=== PATIENT | female | born 1975 | race Caucasian/White ===

== ENCOUNTER 2019-05-18 12:43 | Emergency (ER) | payer OTHER, SELFPAY ==
--- NOTE | ~2019-05-18 | XR_ITS ---
EXAMINATION: XR chest 2V DATE: 05/18/2019 13:52 INDICATION: Left-sided chest pain TECHNIQUE: Frontal and lateral views of the chest are obtained COMPARISON: None available FINDINGS: There is minimal airspace opacity of the right middle lobe. There is no pleural effusion or pneumothorax. The cardiomediastinal silhouette is normal. There is mild thoracic spondylosis. IMPRESSION: 1. Minimal airspace opacity of the right middle lobe, consistent with atelectasis versus pneumonia. Reviewed, dictated and finalized at location B. IMPRESSION: 1. Minimal airspace opacity of the right middle lobe, consistent with atelectas is versus pneumonia.
[2019-05-18 12:47] VITALS: BP 170/107; PULSE 111; RESP 10; TEMP 36.8; O2SAT 100
--- NOTE | 2019-05-18 12:56 | PC.NURSE ---
ERP CORNEL AT BEDSIDE.
--- NOTE | 2019-05-18 12:56 | ED.GENADULT ---
HPI - General Adult General Chief complaint: Extremity Injury, Upper Stated complaint: left shoulder pain/ back Time Seen by Provider: 05/18/19 12:50 Source: patient Mode of arrival: ambulatory Limitations: no limitations History of Present Illness HPI narrative: Pt is a 44 y/o female who presents to the ED with c/o lt shoulder pain, lt collarbone pain, and lt arm weakness. Pt states that her Sx started this morning at 3AM. She notes that she has been anxious and reports nausea, posterior DUGGAN, posterior neck pain, and warmth to her chest, ears, and face. Pt denies any injury or trauma to her arm. She states that she took Ibuprofen at 3AM and 7AM with no relief. Pt has a H/o HTN and HLD, but she denies a H/O DM. MD complaint: Lt sided pain and weakness Onset (ago): hour(s) (10) Location: chest (collarbone), back (shoulder blade), left and upper extremity Pain Consistency: constant Relieving factors: none Associated symptoms: headaches (posterior) and other (anxious, nausea, posterior neck pain, and warmth to her chest, ears, and face) Treatments prior to arrival: other (Ibuprofen) Related Data Allergies Allergy/AdvReac Type Severity Reaction Status Date / Time amlodipine Allergy Unknown Swelling Verified 05/18/19 12:53 Penicillins Allergy Unknown Unknown Verified 05/18/19 12:53 Sulfa (Sulfonamide Allergy Unknown Unknown Verified 05/18/19 12:53 Antibiotics) tetracycline Allergy Unknown Unknown Verified 05/18/19 12:53 Review of Systems Review of Systems: All systems reviewed & are unremarkable except as noted in HPI and below Gastrointestinal: Gastrointestinal: Reports nausea Musculoskeletal: Musculoskeletal: Reports neck pain (posterior) and Reports other (lt collarbone pain, lt shoulder blade pain, lt arm muscle fatigue) Integumentary/Breasts: Skin/Breast: Reports other (warmth to ears, face, and chest) Neurologic: Reports headache(s) (posterior) Psychiatric: Psychiatric: Reports anxiety PMFSH Past Medical History Medical History (Updated 05/18/19 @ 14:53 by Henri Lantigua MD) HLD (hyperlipidemia) HTN (hypertension) Rheumatoid arthritis Surgical History Surgical History (Updated 05/18/19 @ 13:18 by Buddy Maldonado) H/O hand surgery rt H/O left knee surgery H/O right knee surgery Family History Family History (Updated 10/22/13 @ 07:13 by DOCTOR UNKNOWN) Mother Family history of osteoarthritis Other Family history of arthritis Social History Social History Smoking status: Never smoker Smoking end date: 02/26/08 Alcohol intake: current Gender identity (if verbalized by the patient): Female Exam Const: General: healthy appearing, no acute distress and well developed Nutritional Appearance: well nourished Orientation/consciousness: patient oriented x3 (alert) and Other orientation findings (Alert) Limitations: no limitations HENMT: Head: normocephalic and atraumatic Ears: external ears normal General nose exam: No nasal discharge present and no epistaxis Face and sinus: face symmetric Mouth: Yes lip normal, Yes tongue normal and Yes moist mucous membranes Throat: other (No exudate, no erythema) Eyes: Conjunctivae: conjunctivae normal Sclera: sclerae normal EOM: EOMs intact bilaterally Neck: Neck: full ROM, no lymphadenopathy and supple Thyroid: thyroid normal Chest: Chest palpation & inspection: no tenderness Resp: Effort & Inspection: normal respiratory effort Auscultation: clear to auscultation bilaterally, no rales, no rhonchi, no wheezes and other (breath sounds equal) Cardio: Rate: regular rate Rhythm: regular rhythm Heart sounds: no gallops and no murmurs GI: Inspection: non-distended GI Palp: No abdominal tenderness and Yes Soft to palpation Auscultation: other (bowel sounds present) : General: Yes no CVA tenderness Back/Spine/Pelvis: Back: no CVA tenderness Thoracic/Lumbar Spine: thoracic and lumbar spine no
--- NOTE | 2019-05-18 13:01 | ECG_ITS ---
Measurements Intervals [place] Rate: 85 P: 41 SC: 144 QRS: 24 QRSD: 90 T: 18 QT: 367 QTc: 437 Interpretive Statements SINUS RHYTHM POSSIBLE LEFT ATRIAL ENLARGEMENT INCOMPLETE RIGHT BUNDLE BRANCH BLOCK BORDERLINE ST-T WAVE ABNORMALITY- INF/LAT LEADS BORDERLINE ECG Electronically Signed On 05-18-2019 13:26:25 CDT by Barney Lr D.O.
[2019-05-18] MEDS: ASPIRIN 81 MG CHEWABLE TABLET 324 MG PO (13:21)
[2019-05-18 13:28] LABS: Basophils Percent Auto 0.2 % (0.2-1.2); Eosinophils Absolute Auto 0.2 K/mm3 (0-0.3); Eosinophils Percent Auto 2.5 % (0-4.4); Hematocrit 40.2 % (37.0-47.0); Immature Granulocyte Absolute 0.02 K/mm3 (0.00-0.031); Immature Granulocyte Percent A 0.2 % (0-0.5); Lymphocytes Absolute Auto 3.02 K/mm3 (0.9-3.2); Lymphocytes Percent Auto 37.5 % (18.3-44.2); Mean Corpuscular HGB Conc 34.8 g/dl (32-36); Mean Corpuscular Hemoglobin 31.2 pg (26-34); Mean Corpuscular Volume 89.5 fl (80-100); Monocytes Absolute Auto 0.7 K/mm3 (0.1-0.6); Monocytes Percent Auto 8.6 % (2.6-8.5); Neutrophils Absolute Auto 4.1 K/mm3 (1.3-6.7); Platelet Count Result 316 k/mm3 (150-375); Red Blood Count 4.49 M/mm3 (4.2-5.4); Red Cell Distribution Width 11.9 % (11.5-14.5); White Blood Count 8.1 K/mm3 (4.5-10.0)
[2019-05-18] MEDS: NITROGLYCERIN SL 0.4 MG TABLET SUBLINGUAL (13:28)
[2019-05-18 13:29] VITALS: BP 151/93; PULSE 105; RESP 16; O2SAT 98
[2019-05-18 13:33] VITALS: BP 153/100; PULSE 102; RESP 18; O2SAT 100
[2019-05-18 13:40] LABS: Alanine Aminotransferase 28 U/L (4-35); Albumin Level 4.8 g/dL (3.5-5.1); Alkaline Phosphatase 72 U/L (38-126); Aspartate Amino Transferase 28 U/L (14-36); Bilirubin,Total 0.6 mg/dL (0.2-1.3); Blood Urea Nitrogen 12 mg/dL (7-17); Calcium 9.2 mg/dL (8.4-10.2); Carbon Dioxide 27 mmol/L (22-30); Chloride 102 mmol/L (98-107); Estimated CRCL calculation 115 ml/min; Estimated Glomerular Filt Rate > 60; Glucose 113 mg/dL (65-105); Potassium 3.2 mmol/L (3.4-5.0); Sodium 139 mmol/L (137-145)
[2019-05-18 13:51] LABS: Troponin I < 0.012 ng/mL (0.000-0.034)
[2019-05-18 14:01] VITALS: PULSE 89; RESP 18; O2SAT 98
[2019-05-18 14:24] VITALS: BP 132/93; PULSE 86; RESP 16; O2SAT 100
[2019-05-18 14:55] VITALS: BP 129/92; PULSE 81; RESP 16; O2SAT 98
== END 2019-05-18 15:04 | disposition home or self-care (01) ==
PROVIDERS: Emergency Provider Emergency Medicine; PCP Family Medicine
DX: M54.2 Cervicalgia (principal); I10 Essential (primary) hypertension; E78.5 Hyperlipidemia, unspecified; M06.9 Rheumatoid arthritis, unspecified; R91.8 Other nonspecific abnormal finding of lung field; I45.10 Unspecified right bundle-branch block; R94.31 Abnormal electrocardiogram [ECG] [EKG]
CPT/HCPCS: 36415; 71046; 80053; 84484; 85025; 93005; 99284; A9270

== ENCOUNTER 2019-08-06 06:38 | Outpatient (CLI) | payer OTHER, SELFPAY ==
--- NOTE | ~2019-08-06 | XR_ITS ---
XR_CERV2-3V_CR 08/06/2019 08:08 Indication: Rheumatoid arthritis. Procedure: 3 views of the cervical spine Comparison: No prior studies for comparison. Findings: Straightening of cervical lordosis. There is disc narrowing and endplate hypertrophy at C5- 6 and C6-7. No prevertebral soft tissue abnormality. There is multilevel uncinate hypertrophy. Lung a pices are normal. No erosive changes. Odontoid process within normal limits. Impression: 1: Moderate cervical spondylosis, most advanced at C5-6 and C6-7. Reviewed, dictated and finalized at location A. Impression: 1: Moderate cervical spondylosis, most advanced at C5-6 and C6-7.
--- NOTE | ~2019-08-06 | XR_ITS ---
EXAMINATION: XR ankle LT 2V, XR foot LT min 3V, XR foot RT min 3V, XR ankle RT 2V DATE: 08/06/2019 08:08 INDICATION: Rheumatoid arthritis presenting with generalized arthralgia and articular hypermobility. TECHNIQUE: 1. Anteroposterior and lateral view of the left ankle were obtained. 2. Dorsoplantar, two oblique and lateral views of the left foot were obtained. 3. Anteroposterior and lateral view of the right ankle were obtained. 4. Dorsoplantar, two oblique and lateral views of the right foot were obtained. COMPARISON: None. FINDINGS: Alignment of the bilateral feet and ankles is normal. No fracture or osteochondral lesion. Minimal to mild polyarticular osteoarthritis characterized by slight nonuniform joint space narrowing and/or ti ny marginal osteophytes at the bilateral tibiotalar, first metatarsophalangeal and a few interphalang eal joints. No erosions to suggest an inflammatory arthritis. No ankle joint effusion. The soft tissu es are unremarkable. IMPRESSION: 1. Typical distribution of relatively symmetric minimal to mild polyarticular osteoarthritis at the a nkles and forefeet. No erosions to suggest an inflammatory arthritis. Reviewed, dictated and finalized at location A. IMPRESSION: 1. Typical distribution of relatively symmetric minimal to mild polyarticular o steoarthritis at the ankles and forefeet. No erosions to suggest an inflammator y arthritis. IMPRESSION: 1. Typical distribution of relatively symmetric minimal to mild polyarticular o steoarthritis at the ankles and forefeet. No erosions to suggest an inflammator y arthritis. IMPRESSION: 1. Typical distribution of relatively symmetric minimal to mild polyarticular o steoarthritis at the ankles and forefeet. No erosions to suggest an inflammator y arthritis.
--- NOTE | ~2019-08-06 | XR_ITS ---
XR hip RT min 2V, XR hip LT min 2V 08/06/2019 08:08 Indication: Rheumatoid arthritis. Hip pain. Procedure: 2 views of each hip Comparison: No prior studies for comparison. Findings: Normal anatomic alignment. No significant joint space narrowing. No erosive changes. No fra cture or traumatic malalignment. There is an IUD in the pelvis. Impression: 1: No significant bone or joint abnormality. Reviewed, dictated and finalized at location A. Impression: 1: No significant bone or joint abnormality. Impression: 1: No significant bone or joint abnormality.
--- NOTE | ~2019-08-06 | XR_ITS ---
XR hand BI arthritis min 3V 08/06/2019 08:08 Indication: Bilateral hand pain Procedure: 4 views of each hand Comparison: No prior studies for comparison. Findings: There is a side plate and screws transfixing the base of the right fifth metacarpal. There are arm degenerative changes at the first CMC joint bilaterally. No acute fracture or traumatic malal ignment. No erosive changes. There is mild osteoarthritis of the left third knee IP joint. There is o steoarthritis of the right third DIP joint. No significant soft tissue abnormality. Impression: 1: Mild-moderate polyarticular osteoarthritis. Reviewed, dictated and finalized at location A. Impression: 1: Mild-moderate polyarticular osteoarthritis.
--- NOTE | ~2019-08-06 | XR_ITS ---
EXAMINATION: XR chest 2V 08/06/2019 08:08 INDICATION: Lung term drug use for rheumatoid arthritis. Generalized articular hypermobility. PROCEDURE: 2 view chest COMPARISON: 05/18/2019 FINDINGS: The lungs are clear. The cardiomediastinal silhouette is within normal limits. There are no pleural effusions. There is no pneumothorax suspected. IMPRESSION: 1: NO ACUTE CARDIOPULMONARY DISEASE. Reviewed, dictated and finalized at location A.
--- NOTE | ~2019-08-06 | MR_ITS ---
EXAMINATION: MR brain/brain stem wo con DATE: 08/06/2019 08:26 CDT INDICATION: Dizziness. Headache. Pupil irregularity. TECHNIQUE: Magnetic resonance imaging (MRI) of the brain and brainstem was performed without intraven ous contrast. Sequences included sagittal and axial T1-weighted SE, axial diffusion-weighted FS SE, a xial T2*-weighted GRE, axial T2-weighted FLAIR Propeller, and axial T2-weighted Propeller. Apparent d iffusion coefficient (ADC) maps were created. COMPARISON: MRI dated 07/31/2011 FINDINGS: The brain volume and ventricular system are within normal limits. The brain parenchymal si gnal intensity pattern and gentile/white matter is normal and there is no evidence of hemorrhage, space occupying masses or infarctions. The flow signal voids of the major arterial structures about the [place] and within the eulalio r dural venous sinuses appear grossly unremarkable and patent. The seventh and eighth cranial nerve complexes are normal. The mid sagittal image demonstrates a normal craniovertebral junction and laisha us callosum. The paranasal sinuses are grossly unremarkable. IMPRESSION: 1: Unremarkable MRI of the brain. Reviewed, dictated and finalized at location A.
== END 2019-08-06 06:39 | disposition home or self-care (01) ==
PROVIDERS: PCP Family Medicine
DX: G44.59 Other complicated headache syndrome (principal); R42 Dizziness and giddiness; H21.562 Pupillary abnormality, left eye; M19.041 Primary osteoarthritis, right hand; M19.042 Primary osteoarthritis, left hand; M47.892 Other spondylosis, cervical region
CPT/HCPCS: 70551; 71046; 72040; 73130; 73502; 73600; 73630

== ENCOUNTER 2020-02-11 09:34 | Emergency (ER) | payer OTHER, SELFPAY ==
--- NOTE | ~2020-02-11 | CT_ITS ---
EXAMINATION: CTA brain carotid DATE: 02/11/2020 11:16 INDICATION: Headache. Anisocoria. TECHNIQUE: Computed tomographic angiography (CTA) of the head was performed without and with 100 mL O mnipaque-350 intravenous contrast. CTA of the neck was performed with intravenous contrast. Automated exposure control and iterative reconstruction technique were employed. The dose-length product was 1 703.44 mGy-cm. Maximum intensity projection and volume rendered 3D-reconstructions were created by santo abraham technologist on a separate workstation. COMPARISON: None. FINDINGS: HEAD CTA: There is no intracranial hemorrhage, acute infarction, or abnormal intracranial mass lesion . The ventricles are normal in size. The paranasal sinuses are clear. The mastoid air cells are susy l. The orbits are normal. The vertebral arteries are codominant. There is no significant stenosis of basilar artery or the posterior cerebral arteries. The posterior communicating arteries are normal. T here is no significant stenosis of the intracranial internal carotid arteries or anterior or middle c erebral arteries. Anterior communicating artery is normal. There is no aneurysm. NECK CTA: There are no pathologically enlarged lymph nodes. There is no significant stenosis of the v ertebral arteries. There is no visible plaque in the proximal internal carotid arteries. There is 0% stenosis of the proximal right internal carotid artery relative to normal distal artery lumen diamete r (NASCET criteria). There is 0% stenosis of the proximal left internal carotid artery relative to no rmal distal artery lumen diameter. There is severe cervical spondylosis. IMPRESSION: 1. Normal brain. No aneurysm or significant intracranial arterial stenosis. 2. 0% stenosis of the proximal internal carotid arteries relative to normal distal artery lumen diame ters (NASCET criteria). Reviewed, dictated and finalized at location A. DENT BUYER IMPRESSION: 1. Normal brain. No aneurysm or significant intracranial arterial stenosis. 2. 0% stenosis of the proximal internal carotid arteries relative to normal dis anjana artery lumen diameters (NASCET criteria).
[2020-02-11 09:38] VITALS: BP 203/107; PULSE 86; RESP 9; TEMP 36.6; O2SAT 99
--- NOTE | 2020-02-11 10:02 | ED.NEUROSD ---
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 She awoke from sleep this morning with a dilated left pupil. She was not concerned initially because she had this a few months ago and was diagnosed with adie's disease. At that time she was told that the symptoms may return. While at her OBGYNs office this morning she also developed a headache and her blood pressure was elevated, so she was sent here for further evaluation. Related Data Home Medications Medication Instructions Recorded Confirmed adalimumab [Humira(CF) Pen] mg SUBCUT 02/11/20 leflunomide mg 02/11/20 Allergies Allergy/AdvReac Type Severity Reaction Status Date / Time amlodipine Allergy Unknown Swelling Verified 02/11/20 09:43 Penicillins Allergy Unknown Unknown Verified 02/11/20 09:43 Sulfa (Sulfonamide Allergy Unknown Unknown Verified 02/11/20 09:43 Antibiotics) tetracycline Allergy Unknown Unknown Verified 02/11/20 09:43 Review of Systems Review of Systems: All systems reviewed & are unremarkable except as noted in HPI and below Constitutional: Constitutional: Denies chills and Denies fever(s) Eyes: Comments: Blurry vision ENT: Denies sore throat Cardiovascular: Cardiovascular: Denies chest pain Respiratory: Respiratory: Denies dyspnea Gastrointestinal: Gastrointestinal: Denies abdominal pain, Denies nausea and Denies vomiting Genitourinary: Genitourinary: Denies dysuria Musculoskeletal: Musculoskeletal: Denies back pain Neurologic: Denies confusion, Denies dizziness, Reports headache(s), Denies numbness and Denies weakness [facility] Past Medical History Medical History HLD (hyperlipidemia) HTN (hypertension) Rheumatoid arthritis Surgical History Surgical History H/O hand surgery rt H/O left knee surgery H/O right knee surgery Family History Family History Mother Family history of osteoarthritis Other Family history of arthritis Social History Social History Smoking status: Never smoker Smoking end date: 02/26/08 Alcohol intake: current Gender identity (if verbalized by the patient): Female Exam Const: General: healthy appearing, no acute distress and alert Nutritional Appearance: well nourished Orientation/consciousness: patient oriented x3 HENMT: Head: normal to inspection Ears: TM's normal bilaterally and EAC's normal Face and sinus: normal facial exam Eyes: Conjunctivae: conjunctivae normal EOM: EOMs intact bilaterally Direct Ophthalmoscopy: no papilledema, fundi normal bilaterally and anterior chamber normal Other: dilated and minimally responsive left pupil Neck: Neck: normal visual inspection and no lymphadenopathy Chest: Chest palpation & inspection: no tenderness Resp: Effort & Inspection: normal respiratory effort Auscultation: clear to auscultation bilaterally, no rales, no rhonchi and no wheezes Cardio: Jugular venous distension: no JVD Rate: regular rate Rhythm: regular rhythm Heart sounds: no murmurs Skin: General skin exam: normal color Neuro: General: patient oriented x3, moves all extremities, no focal motor deficits and CN's II-XI intact bilaterally Speech: normal speech Extrem: General: no edema Psych: Appearance: well kempt Affect: normal affect Course Vital Signs Vital signs: Vital Signs Temperature 36.6 C 02/11/20 09:38 Pulse Rate 86 02/11/20 09:38 Respiratory Rate 9 L 02/11/20 09:38 Blood Pressure 203/107 H 02/11/20 09:38 Pulse Oximetry 99 02/11/20 09:38 Temper
[2020-02-11 10:43] LABS: Basophils Percent Auto 0.7 % (0.2-1.2); Eosinophils Absolute Auto 0.2 K/mm3 (0-0.3); Eosinophils Percent Auto 2.5 % (0-4.4); Hematocrit 44.2 % (37.0-47.0); Hemoglobin 15.6 g/dL (12.0-15.0); Immature Granulocyte Absolute 0.01 K/mm3 (0.00-0.031); Immature Granulocyte Percent A 0.2 % (0-0.5); Lymphocytes Percent Auto 48.7 % (18.3-44.2); Mean Corpuscular HGB Conc 35.3 g/dl (32-36); Mean Corpuscular Hemoglobin 32.4 pg (26-34); Mean Corpuscular Volume 91.7 fl (80-100); Mean Platelet Volume 10.7 fl (7.4-10.4); Monocytes Absolute Auto 0.5 K/mm3 (0.1-0.6); Monocytes Percent Auto 8.4 % (2.6-8.5); Neutrophils Absolute Auto 2.4 K/mm3 (1.3-6.7); Neutrophils Percent Auto 39.5 % (45.5-73.1); Platelet Count Result 269 k/mm3 (150-375); Red Blood Count 4.82 M/mm3 (4.2-5.4); Red Cell Distribution Width 11.9 % (11.5-14.5)
[2020-02-11] MEDS: METOCLOPRAMIDE HCL INJ 10 MG/2 ML VIAL IV PUSH (10:51)
[2020-02-11 10:52] LABS: INR 0.9; Prothrombin Time 12.6 Seconds (11.1-14.7)
[2020-02-11 10:53] LABS: Partial Thromboplastin Time 28.5 SECONDS (22.3-36.8)
[2020-02-11 11:13] LABS: Anion Gap 7 mmol/L (8-16); Blood Urea Nitrogen 12 mg/dL (7-17); Calcium 9.4 mg/dL (8.4-10.2); Carbon Dioxide 30 mmol/L (22-30); Chloride 104 mmol/L (98-107); Estimated CRCL calculation 99 ml/min; Estimated Glomerular Filt Rate > 60; Glucose 99 mg/dL (65-105); Potassium 3.7 mmol/L (3.4-5.0); Sodium 141 mmol/L (137-145)
[2020-02-11 11:31] LABS: Estimated CRCL calculation 99 ml/min; Estimated Glomerular Filt Rate > 60
[2020-02-11 12:01] VITALS: BP 165/106; PULSE 86; RESP 14; O2SAT 98
[2020-02-11] MEDS: KETOROLAC 30 MG/ML VIAL (*BKC) IV PUSH (13:01)
[2020-02-11] MEDS: LABETALOL HCL INJ 100 MG/20 ML VIAL 10 MG IV PUSH (13:02)
[2020-02-11 13:03] VITALS: BP 154/103; PULSE 79; RESP 15; O2SAT 97
[2020-02-11 13:20] VITALS: BP 148/93; PULSE 87; RESP 16; O2SAT 98
== END 2020-02-11 14:03 | disposition home or self-care (01) ==
PROVIDERS: Emergency Provider Emergency Medicine; PCP Family Medicine
DX: H57.052 Tonic pupil, left eye (principal); I10 Essential (primary) hypertension; M06.9 Rheumatoid arthritis, unspecified; E78.5 Hyperlipidemia, unspecified
CPT/HCPCS: 36415; 70496; 70498; 80048; 85025; 85610; 85730; 96374; 96375; 99284; J1100; J1885; J2765; Q9967

== ENCOUNTER 2020-02-14 19:50 | Emergency (ER) | payer OTHER, SELFPAY ==
[2020-02-14] VITALS (22 sets, daily range): BP systolic 143–199; BP diastolic 102–124; PULSE 77–91; RESP 12–22; TEMP 36.8; O2SAT 93–99
--- NOTE | ~2020-02-14 | XR_ITS ---
EXAMINATION: XR chest 1V portable EXAM DATE: 02/14/2020 20:16 INDICATION: shortness of breath, HBP, dizziness. TECHNIQUE: Portable AP frontal chest x-ray was obtained. Comparison is made to prior examination from 08/06/2019. FINDINGS: The lungs are clear. There are no pleural effusions. The cardiomediastinal silhouette is within normal limits. There is no pneumothorax suspected. The bones and soft tissues are unremarkab le. IMPRESSION: No acute cardiopulmonary findings. Reviewed, dictated and finalized at location A. ON BREAKER OPERATOR
--- NOTE | 2020-02-14 19:58 | ECG_ITS ---
Measurements Intervals [place] Rate: 76 P: 40 SC: 152 QRS: 35 QRSD: 88 T: 37 QT: 397 QTc: 447 Interpretive Statements SINUS RHYTHM BORDERLINE ST ABNORMALITY- INF/HIGH LAT LEADS BORDERLINE ECG Electronically Signed On 02-15-2020 8:03:41 MENAGERIE CARETAKER by Barney Lr D.O.
--- NOTE | 2020-02-14 20:03 | ED.GENADULT ---
HPI - General Adult General Chief complaint: Recheck/Abnormal Lab/Rx Stated complaint: high BP Time Seen by Provider: 02/14/20 19:52 History of Present Illness HPI narrative: Patient is a 45-year-old female who presents emerged part with chief complaint of hypertension. The patient reports that she has recently been diagnosed with high blood pressure and started having some shortness of breath and felt as though she had a headache. The patient took her blood pressure at home and she was in the 220s for her systolic. Patient recently was started on 25 mg of Toprol XL and has only been taking that for several days. Patient denies focal neurological deficit. Patient reports symptoms are not improved by anything nor they worsened by anything Related Data Home Medications Medication Instructions Recorded Confirmed adalimumab [Humira(CF) Pen] mg SUBCUT 02/11/20 leflunomide mg 02/11/20 Allergies Allergy/AdvReac Type Severity Reaction Status Date / Time amlodipine Allergy Unknown Swelling Verified 02/14/20 20:20 Penicillins Allergy Unknown Unknown Verified 02/14/20 20:20 Sulfa (Sulfonamide Allergy Unknown Unknown Verified 02/14/20 20:20 Antibiotics) tetracycline Allergy Unknown Unknown Verified 02/14/20 20:20 Review of Systems Review of Systems: Narrative: A 10 system review of systems was completed on the patient and is negative except for what is stated in the HPI. Nursing and ancillary documentation was reviewed. PMFSH Past Medical History Medical History HLD (hyperlipidemia) HTN (hypertension) Rheumatoid arthritis Surgical History Surgical History H/O hand surgery rt H/O left knee surgery H/O right knee surgery Family History Family History Mother Family history of osteoarthritis Other Family history of arthritis Social History Social History Smoking status: Never smoker Smoking end date: 02/26/08 Alcohol intake: current Gender identity (if verbalized by the patient): Female Exam Narrative: Exam Narrative: GENERAL: Well-appearing, well-nourished, and in no acute distress. HEAD: Normocephalic, atraumatic. EYES: PERRLA and EOMI. ENT: Nares clear, no rhinorrhea or epistaxis. Mucous membranes moist. NECK: Supple. CHEST: Clear to auscultation. No respiratory distress. HEART: Regular rate and rhythm. No murmur heard. Normal peripheral pulses. ABDOMEN: Soft, nontender, nondistended, normal active bowel sounds. EXTREMITIES: Normal range of motion. No edema. SKIN: Warm, dry, no rash. NEURO: No focal deficits. Alert and oriented x3. PSYCH: Normal mood and affect. Course Course Emergency Course: EKG shows no evidence of ST elevation or ST depression After receiving an additional dose of IV Lopressor in the emergency department the patient is currently asymptomatic her blood pressure has come down substantially. Vital Signs Vital signs: Vital Signs Pulse Rate 80 02/14/20 19:55 Respiratory Rate 18 02/14/20 19:55 Blood Pressure 199/124 H 02/14/20 19:55 Pulse Oximetry 99 02/14/20 19:55 Temperature 36.8 C 02/14/20 20:15 Pulse Rate 80 02/14/20 20:46 Respiratory Rate 16 02/14/20 20:46 Blood Pressure 171/111 H 02/14/20 20:46 Pulse Oximetry 98 02/14/20 20:46 Medical Decision Making Vital Signs Vital Signs: Vital Signs Pulse Rate 80 02/14/20 19:55 Respiratory Rate 18 02/14/20 19:55 Blood Pressure 199/124 H 02/14/20 19:55 Pulse Oximetry 99 02/14/20 19:55 Temperature 36.8 C 02/14/20 20:15 Pulse Rate 80 02/14/20 20:46 Respiratory Rate 16 02/14/20 20:46 Blood Pressure 171/111 H 02/14/20 20:46 Pulse Oximetry 98 02/14/20 20:46 Lab Data Result diagrams: 02/14/20 20:08
[2020-02-14] MEDS: METOPROLOL TARTRATE INJ 5 MG/5 ML VIAL IV PUSH (20:05)
[2020-02-14] MEDS: ONDANSETRON INJ 4 MG/2 ML VIAL IV PUSH (20:05)
[2020-02-14 20:14] LABS: Basophils Percent Auto 0.4 % (0.2-1.2); Eosinophils Absolute Auto 0.2 K/mm3 (0-0.3); Eosinophils Percent Auto 2.7 % (0-4.4); Hematocrit 39.9 % (37.0-47.0); Hemoglobin 14.6 g/dL (12.0-15.0); Immature Granulocyte Absolute 0.01 K/mm3 (0.00-0.031); Immature Granulocyte Percent A 0.1 % (0-0.5); Lymphocytes Absolute Auto 4.52 K/mm3 (0.9-3.2); Lymphocytes Percent Auto 49.9 % (18.3-44.2); Mean Corpuscular HGB Conc 36.6 g/dl (32-36); Mean Corpuscular Volume 87.5 fl (80-100); Mean Platelet Volume 10.2 fl (7.4-10.4); Monocytes Absolute Auto 0.9 K/mm3 (0.1-0.6); Monocytes Percent Auto 10.4 % (2.6-8.5); Neutrophils Absolute Auto 3.3 K/mm3 (1.3-6.7); Neutrophils Percent Auto 36.5 % (45.5-73.1); Platelet Count Result 289 k/mm3 (150-375); Red Blood Count 4.56 M/mm3 (4.2-5.4); Red Cell Distribution Width 11.6 % (11.5-14.5); White Blood Count 9.1 K/mm3 (4.5-10.0)
[2020-02-14 20:26] LABS: Alanine Aminotransferase 46 U/L (4-35); Albumin Level 4.3 g/dL (3.5-5.1); Alkaline Phosphatase 52 U/L (38-126); Anion Gap 10 mmol/L (8-16); Aspartate Amino Transferase 35 U/L (14-36); Bilirubin,Total 0.6 mg/dL (0.2-1.3); Blood Urea Nitrogen 14 mg/dL (7-17); Calcium 9.5 mg/dL (8.4-10.2); Carbon Dioxide 24 mmol/L (22-30); Chloride 103 mmol/L (98-107); Estimated Glomerular Filt Rate > 60; Glucose 159 mg/dL (65-105); Potassium 3.1 mmol/L (3.4-5.0); Sodium 137 mmol/L (137-145)
[2020-02-14 20:35] LABS: NT Pro B Type Natriuretic Pept 70 PG/ML (5-100)
== END 2020-02-14 22:05 | disposition home or self-care (01) ==
PROVIDERS: Emergency Provider Emergency Medicine; PCP Family Medicine
DX: I10 Essential (primary) hypertension (principal); E78.5 Hyperlipidemia, unspecified; M06.9 Rheumatoid arthritis, unspecified
CPT/HCPCS: 36415; 71045; 80053; 83880; 85025; 93005; 96374; 96375; 99284; J2405

== ENCOUNTER 2020-07-20 16:34 | Outpatient (CLI) | payer OTHER, SELFPAY ==
--- NOTE | ~2020-07-20 | MM_ITS ---
EXAMINATION: MM screening pierre BI w sylvia HISTORY: Screening mammogram TECHNIQUE: Craniocaudal and mediolateral oblique 3-D tomosynthesis images were obtained and synthetic 2-D images were generated. CAD analysis was submitted and interpreted. COMPARISON: 03/03/2019 bilateral digital screening mammogram 11/21/2017 bilateral digital screening mammogram and limited right breast ultrasound examination 04/15/2017 and 09/12/2016 diagnostic right digital mammogram and limited right breast ultrasound examin ation 09/03/2016 bilateral digital screening mammogram BREAST PARENCHYMAL COMPOSITION: The breasts are heterogeneously dense, which may obscure small masses . FINDINGS: Stable circumscribed low-density approximately 9 x 18 mm mass in the inner mid right breast , with benign appearing calcifications, likely a minimally calcified fibroadenoma. There is no eviden ce of suspicious mass, calcification, or architectural distortion to suggest malignancy in either chato ast. There has been no suspicious interval change. IMPRESSION: 1. No mammographic evidence of malignancy. 2. Recommend routine screening mammography in one year. BI-RADS Category 2: Benign finding(s). Reviewed, dictated and finalized at location A.
== END 2020-07-20 16:35 | disposition home or self-care (01) ==
LOC: ANHIMG 16:36
PROVIDERS: PCP Family Medicine; Visit Provider Obstetrics & Gynecology
DX: Z12.31 Encounter for screening mammogram for malignant neoplasm of breast (principal)
CPT/HCPCS: 77063; 77067

== ENCOUNTER 2021-10-01 06:09 | Emergency (ER) | payer OTHER, SELFPAY ==
--- NOTE | ~2021-10-01 | XR_ITS ---
XR chest 2V DATE: 10/01/2021 06:48 INDICATION: Midsternal chest pain. Dizziness. Recent near syncope. TECHNIQUE: PA and lateral views COMPARISON: 02/14/2020 portable AP chest FINDINGS: Normal heart size. No hilar or mediastinal enlargement. No pulmonary infiltrate or consolid ation, pleural effusion or pulmonary vascular congestion or pneumothorax. IMPRESSION: No active cardiopulmonary disease Reviewed, dictated and finalized at location A.
[2021-10-01 06:14] VITALS: BP 147/102; PULSE 107; RESP 18; TEMP 36.4; O2SAT 100
--- NOTE | 2021-10-01 06:15 | ECG_ITS ---
Measurements Intervals [place] Rate: 96 P: 42 AL: 134 QRS: 44 QRSD: 80 T: 33 QT: 356 QTc: 451 Interpretive Statements SINUS RHYTHM NONSPECIFIC ST SEGMENT ABNORMALITY COMPARED TO ECG 02/14/2020 20:20:58 NO SIGNIFICANT CHANGE Electronically Signed On 10-01-2021 8:27:34 CDT by Michael Dc M.D.
[2021-10-01] MEDS: ASPIRIN 81 MG CHEWABLE TABLET 324 MG PO (06:23)
[2021-10-01 07:01] LABS: Basophils Percent Auto 0.3 % (0.2-1.2); Eosinophils Absolute Auto 0.2 K/mm3 (0-0.3); Eosinophils Percent Auto 2.2 % (0-4.4); Hematocrit 41.3 % (37.0-47.0); Hemoglobin 14.3 g/dL (12.0-15.0); Immature Granulocyte Absolute 0.02 K/mm3 (0.00-0.031); Immature Granulocyte Percent A 0.2 % (0-0.5); Lymphocytes Absolute Auto 2.92 K/mm3 (0.9-3.2); Lymphocytes Percent Auto 28.4 % (18.3-44.2); Mean Corpuscular HGB Conc 34.6 g/dl (32-36); Mean Corpuscular Hemoglobin 31.8 pg (26-34); Mean Platelet Volume 10.3 fl (7.4-10.4); Monocytes Absolute Auto 0.7 K/mm3 (0.1-0.6); Monocytes Percent Auto 6.4 % (2.6-8.5); Neutrophils Absolute Auto 6.4 K/mm3 (1.3-6.7); Neutrophils Percent Auto 62.5 % (45.5-73.1); Platelet Count Result 335 k/mm3 (150-375); Red Blood Count 4.49 M/mm3 (4.2-5.4); Red Cell Distribution Width 12.1 % (11.5-14.5); White Blood Count 10.3 K/mm3 (4.5-10.0)
[2021-10-01 07:11] VITALS: PULSE 84; O2SAT 95
[2021-10-01 07:12] LABS: INR 0.9; Partial Thromboplastin Time 28.8 SECONDS (22.3-36.8); Prothrombin Time 12.1 Seconds (11.1-14.7)
[2021-10-01 07:15] VITALS: BP 115/81; PULSE 86; RESP 11; O2SAT 97
[2021-10-01 07:16] VITALS: PULSE 84; O2SAT 97
--- NOTE | 2021-10-01 07:25 | ED.CHESTPAIN ---
HPI - Chest Pain General Chief Complaint: Chest Pain Stated Complaint: chest presure, nausea Time Seen by Provider: 10/01/21 07:25 Source: patient Mode of arrival: ambulatory Limitations: no limitations History of Present Illness HPI narrative: 42 years old white female presents with intermittent dizziness not feeling well chest pressure since last night. Woke up at 3 AM with dizziness, shortness of breath, chest pressure going to her jaw and teeth. Patient denies smoking, she drinks and uses marijuana almost daily. She denies any history of stress or depression. Related Data Allergies Allergy/AdvReac Type Severity Reaction Status Date / Time Penicillins Allergy Unknown Unknown Verified 08/30/21 09:23 Sulfa (Sulfonamide Allergy Unknown Unknown Verified 08/30/21 09:23 Antibiotics) tetracycline Allergy Unknown Unknown Verified 08/30/21 09:23 Review of Systems Review of Systems: All systems reviewed & are unremarkable except as noted in HPI and below PMFSH Past Medical History Medical History Chronic GERD HLD (hyperlipidemia) HTN (hypertension) Rheumatoid arthritis Surgical History Surgical History H/O hand surgery rt H/O left knee surgery H/O right knee surgery Family History Family History Mother Family history of osteoarthritis Other Family history of arthritis Social History Social History Years smoked: 10 Smoking status: Former smoker Tobacco type: cigarettes Second hand tobacco smoke exposure: No Smoking end date: 02/26/08 Alcohol intake: current Substance use: never Substance use type: does not use Gender identity (if verbalized by the patient): Female Sexual Orientation (if Verbalized by the Patient): Straight or Heterosexual Exam Narrative: General appearance: Well-developed, well-nourished mother at the bedside Skin: Normal color Head: Normocephalic, nontraumatic Eyes: Clear conjunctiva ENT: Oropharynx normal, ears normal, nose normal Neck: Supple, nontender Chest and respiratory: Airway patent, no respiratory distress, no accessory muscle use Heart: Regular rate/rhythm Abdomen: Soft, nontender, no organomegaly, quiet bowel sounds Vascular: Normal peripheral pulses, normal capillary refill. Musculoskeletal: Normal range of motion, nontender back Neurologic: Alert and oriented ?3, L[employer]ER is normal as tested, no gross motor deficit Course Course Emergency Course: Patient's symptoms resolved completely after 1 mg of Ativan orally. Work-up today did not show any significant finding to explain patient condition, and anxiety-like symptom is my concern. Vital Signs Vital signs: Vital Signs Temperature 36.4 C L 10/01/21 06:14 Pulse Rate 107 H 10/01/21 06:14 Respiratory Rate 18 10/01/21 06:14 Blood Pressure 147/102 H 10/01/21 06:14 Pulse Oximetry 100 10/01/21 06:14 Oxygen Delivery Room Air 10/01/21 06:14 Temperature 36.4 C L 10/01/21 06:14 Pulse Rate 80 10/01/21 07:31 Respiratory Rate 11 L 10/01/21 07:15 Blood Pressure 118/82 10/01/21 07:30 Pulse Oximetry 98 10/01/21 07:31 Oxygen Delivery Room Air 10/01/21 06:14 MDM - Chest Pain Lab Data Result diagrams: 10/01/21 06:31 10/01/21 07:23 Labs: Lab Results 10/01/21 10/01/21 10/01/21 Range/Units 06:31 06:31 07:23 WBC 10.3 H (4.5-10.0) K/mm3 RBC 4.49 (4.2-5.4) M/mm3 Hgb 14.3 (12.0-15.0) g/dL Hct 41.3 (37.0-47.0) % MCV 92.0 (80-100)
[2021-10-01 07:30] VITALS: BP 118/82; PULSE 86; O2SAT 95
[2021-10-01 07:31] VITALS: PULSE 80; O2SAT 98
[2021-10-01 07:40] LABS: Alanine Aminotransferase 25 U/L (6-35); Albumin Level 4.7 g/dL (3.5-5.1); Alkaline Phosphatase 65 U/L (38-126); Anion Gap 9 mmol/L (8-16); Aspartate Amino Transferase 24 U/L (14-36); Bilirubin,Total 0.5 mg/dL (0.2-1.3); Blood Urea Nitrogen 10 mg/dL (7-17); Calcium 8.6 mg/dL (8.4-10.2); Carbon Dioxide 25 mmol/L (22-30); Chloride 104 mmol/L (98-107); Estimated CRCL calculation 112 ml/min; Estimated Glomerular Filt Rate > 60; Glucose 106 mg/dL (65-110); Lipase 93 U/L (23-300); Potassium 3.8 mmol/L (3.4-5.0); Sodium 138 mmol/L (137-145)
[2021-10-01 07:51] LABS: Troponin I < 0.012 ng/mL (0.000-0.034)
[2021-10-01] MEDS: LORazepam (*CRX) 0.5 MG TABLET 1 MG PO (09:08)
[2021-10-01 09:34] LABS: D Dimer < 0.27 ug/mL (<0.48)
[2021-10-01 10:00] LABS: Troponin I < 0.012 ng/mL (0.000-0.034)
== END 2021-10-01 11:50 | disposition home or self-care (01) ==
PROVIDERS: Emergency Medicine; Emergency Provider Emergency Medicine; PCP Family Medicine
DX: R07.89 Other chest pain (principal); F41.9 Anxiety disorder, unspecified; E78.5 Hyperlipidemia, unspecified; I10 Essential (primary) hypertension; M06.9 Rheumatoid arthritis, unspecified; K21.9 Gastro-esophageal reflux disease without esophagitis; Z87.891 Personal history of nicotine dependence; R94.31 Abnormal electrocardiogram [ECG] [EKG]
CPT/HCPCS: 36415; 71046; 80053; 83690; 84484; 85025; 85380; 85610; 85730; 93005; 99284; A9270

== ENCOUNTER 2022-02-05 11:49 | Outpatient (CLI) | payer OTHER, SELFPAY ==
[2022-02-05 12:47] LABS: Influenza A QL RT-PCR Positive (Negative); Influenza B QL RT-PCR Negative (Negative); SARS-CoV-2 RNA PCR Negative
== END 2022-02-05 11:50 | disposition home or self-care (01) ==
LOC: ANHLAB 11:50
PROVIDERS: PCP Family Medicine; Visit Provider Nurse Practitioner Family
DX: R05.9 Cough, unspecified (principal)
CPT/HCPCS: 87636

== ENCOUNTER 2022-02-14 08:48 | Outpatient (CLI) | payer OTHER, SELFPAY ==
--- NOTE | ~2022-02-14 | MM_ITS ---
EXAMINATION: MM screening pierre BI w sylvia HISTORY: Screening TECHNIQUE: Craniocaudal and mediolateral oblique 3-D tomosynthesis images were obtained and synthetic 2-D images were generated. CAD analysis was submitted and interpreted. COMPARISON: Comparison to multiple prior studies sequentially, with oldest reviewed study dated 09/03. BREAST PARENCHYMAL COMPOSITION: The breasts are heterogeneously dense, which may obscure small masses FINDINGS: There is focal asymmetry centrally in the left breast on CC view. There is a stable right b reast mass with internal calcifications, likely fibroadenoma. No evidence for malignancy in the right breast. IMPRESSION: 1. New left breast asymmetry centrally on CC view. 2. Additional mammographic views and possible breast ultrasound are recommended. BI-RADS Category 0: Incomplete: Needs additional imaging evaluation. Reviewed, dictated and finalized at location A. 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 New left breast asymmetry centrally on CC view. 2. Additional mammographic views and possible breast ultrasound are recommended . BI-RADS Category 0: Incomplete: Needs additional imaging evaluation.
== END 2022-02-14 08:49 | disposition home or self-care (01) ==
LOC: ANHIMG 08:49
PROVIDERS: PCP Family Medicine; Visit Provider Obstetrics & Gynecology
DX: Z12.31 Encounter for screening mammogram for malignant neoplasm of breast (principal); R92.8 Other abnormal and inconclusive findings on diagnostic imaging of breast
CPT/HCPCS: 77063; 77067

== ENCOUNTER → 2022-03-12 07:50 | Outpatient (CLI) | payer OTHER, SELFPAY ==
--- NOTE | ~2022-03-12 | MMUS_ITS ---
EXAMINATION: MM diagnostic pierre LT w sylvia, US breast LT limited HISTORY: Left breast asymmetry on screening mammogram TECHNIQUE: Additional 3-D tomosynthesis images of the left breast were performed and synthetic 2-D im ages were generated. CAD analysis was submitted and interpreted. High resolution limited left breast ultrasound was performed. COMPARISON: 02/14/2022, 07/20/2020, 03/03/2019 FINDINGS: MAMMOGRAPHIC FINDINGS: There is a return to baseline fibroglandular appearance with spot compression of the left breast in t he area questioned on screening mammogram. ULTRASOUND: There is a 3 mm round, circumscribed, hypoechoic mass with posterior acoustic enhancement and no inte rnal vascularity at the 6:00 location 7 cm from the nipple. IMPRESSION: 1. Probably benign right breast mass. 2. Recommend 6 month follow-up limited left breast ultrasound with mammogram if required. BI-RADS category 3, probably benign findings. Reviewed, dictated and finalized at location A. ON SORTER IMPRESSION: 1. Probably benign right breast mass. 2. Recommend 6 month follow-up limited left breast ultrasound with mammogram if required. BI-RADS category 3, probably benign findings.
== END ==
PROVIDERS: PCP Family Medicine; Visit Provider Obstetrics & Gynecology
DX: R92.8 Other abnormal and inconclusive findings on diagnostic imaging of breast (principal)
CPT/HCPCS: 76642; 77061; 77065; G0279

== ENCOUNTER 2022-08-31 00:12 | Day surgery (SDC) | payer OTHER, SELFPAY ==
[2022-08-23 11:36] VITALS: BMI 26.9
--- NOTE | 2022-08-30 13:09 | PM.HPGS ---
History of Present Illness History of Present Illness Consent: Risks, benefits, and alternatives have been discussed and questions answered. Patient agrees to proceed with procedure. Chief complaint: neoplasm screening Narrative: Meghann Weeks is a 47 year old female Referred for colon cancer screening. Review of Systems Review of Systems: All systems reviewed & are unremarkable except as noted in HPI and below PMFSH Past Medical History Medical History Chronic GERD HLD (hyperlipidemia) HTN (hypertension) Rheumatoid arthritis Surgical History Surgical History H/O hand surgery rt H/O left knee surgery H/O right knee surgery Family History Family History Mother Family history of osteoarthritis Hypertension Father Hypertension Grandparent Hypertension Other Family history of arthritis Social History Social History Smoking packs per day: 0.5 Smoking cigarettes per day: 10.0 Years smoked: 10 Smoking pack-years: 5.00 Smoking status: Former smoker Tobacco type: cigarettes Second hand tobacco smoke exposure: No Smoking end date: 02/26/08 Alcohol intake: current Drinks per week: 2 Substance use: never Substance use type: does not use Living arrangements: with family Occupation/Education: occupation Gender identity (if verbalized by the patient): Female Sexual Orientation (if Verbalized by the Patient): Straight or Heterosexual Spiritual care concerns: No Meds Home Medications and Allergies Home Medications Medication Instructions Recorded Confirmed Type amlodipine 5 mg tablet See Rx Instructions .Route 12/18/21 08/23/22 Rx .COMPLEX #90 tabs losartan 50 mg tablet See Rx Instructions .Route 01/22/22 08/23/22 Rx .COMPLEX #90 tabs rosuvastatin 10 mg tablet See Rx Instructions .Route 07/02/22 08/23/22 Rx .COMPLEX #90 tabs fluticasone propionate 50 1 - 2 spray intranasal PRN PRN 08/23/22 08/23/22 History mcg/actuation nasal Sinus Symptoms spray,suspension (Flonase Allergy Relief) Allergies Allergy/AdvReac Type Severity Reaction Status Date / Time Penicillins Allergy Unknown Unknown Verified 08/31/22 06:23 Sulfa (Sulfonamide Allergy Unknown Unknown Verified 08/31/22 06:23 Antibiotics) tetracycline Allergy Unknown Unknown Verified 08/31/22 06:23 Exam Const: General: alert Orientation/consciousness: patient oriented x3 Resp: Auscultation: clear to auscultation bilaterally Cardio: Rhythm: regular rhythm GI: GI Palp: Yes Soft to palpation and No Tenderness to palpation present (GI) Neuro: General: patient oriented x3 Assessment and Plan Assessment and plan (1) Screening for malignant neoplasm of colon declined: Code(s): Z53.20 - Procedure and treatment not carried out because of patient's decision for unspecified reasons Status: Acute Assessment and Plan: Colonoscopy with possible biopsy or polypectomy or cautery or injection of substances.
[2022-08-31 06:24] VITALS: BP 128/91; PULSE 84; RESP 18; TEMP 36.1; O2SAT 100
[2022-08-31] MEDS: LACTATED RINGERS 1,000 ML 150 ML IV CONT (06:33)
--- NOTE | 2022-08-31 07:24 | WPDANESEPPF ---
Anes - Initial Pre Proc Eval Procedure: Operation Date: 08/31/22 07:30 Proposed Procedures p Screening Colonoscopy - Garcia Zazueta MD Date/Time: 08/31/22 07:24 Surgeon: Garcia Zazueta MD Pre Op Diagnosis: neoplasm screening Patient Data Age: 47 Gender: F Height: 1.8 m Weight: 88.8 kg Last Vital Signs Temp 96.9 F L 08/31/22 06:24 Pulse 84 08/31/22 06:24 Resp 18 08/31/22 06:24 BP 128/91 H 08/31/22 06:24 Pulse Ox 100 08/31/22 06:24 O2 Del Method Room Air 08/31/22 06:24 Allergies Allergy/AdvReac Type Severity Reaction Status Date / Time Penicillins Allergy Unknown Unknown Verified 08/31/22 06:23 Sulfa (Sulfonamide Allergy Unknown Unknown Verified 08/31/22 06:23 Antibiotics) tetracycline Allergy Unknown Unknown Verified 08/31/22 06:23 Home Medications Medication Instructions Recorded Confirmed Type amlodipine 5 mg tablet See Rx Instructions .Route 12/18/21 08/23/22 Rx .COMPLEX #90 tabs losartan 50 mg tablet See Rx Instructions .Route 01/22/22 08/23/22 Rx .COMPLEX #90 tabs rosuvastatin 10 mg tablet See Rx Instructions .Route 07/02/22 08/23/22 Rx .COMPLEX #90 tabs fluticasone propionate 50 1 - 2 spray intranasal PRN PRN 08/23/22 08/23/22 History mcg/actuation nasal Sinus Symptoms spray,suspension (Flonase Allergy Relief) Patient hx anesthesia problems: post op nausea/vomiting Family hx anesthesia problems: none Results Review: All pre-operative results and documents have been reviewed as part of the pre-operative evaluation. [facility] Past Medical History Medical History Chronic GERD HLD (hyperlipidemia) HTN (hypertension) Rheumatoid arthritis Surgical History Surgical History H/O hand surgery rt H/O left knee surgery H/O right knee surgery Family History Family History Mother Family history of osteoarthritis Hypertension Father Hypertension Grandparent Hypertension Other Family history of arthritis Social History Social History Smoking packs per day: 0.5 Smoking cigarettes per day: 10.0 Years smoked: 10 Smoking pack-years: 5.00 Smoking status: Former smoker Tobacco type: cigarettes Second hand tobacco smoke exposure: No Smoking end date: 02/26/08 Alcohol intake: current Drinks per week: 2 Substance use: never Substance use type: does not use Living arrangements: with family Occupation/Education: occupation Gender identity (if verbalized by the patient): Female Sexual Orientation (if Verbalized by the Patient): Straight or Heterosexual Spiritual care concerns: No Anes - Eval Final PreProcedure Day of Procedure 08/31/22 07:24 Patient weight: normal Heart: regular rate and rhythm Lungs: clear to auscultation Airway: Mallampati scale class II Neurological: alert and oriented Last oral intake: >/= 8 hours ASA classification: II Emergent: no Anesthetic plan: proceed Anesthesia type and monitoring: general GIVS and standard monitoring Results Review: All pre-operative results and documents have been reviewed as part of the pre-operative evaluation. Informed Consent: The patient's anesthetic plan and its attendant risks and benefits were discussed with the patient/family/POA. Questions were solicited and answers provided to the satisfaction of the patient/family/POA.
[2022-08-31 07:48] VITALS: BP 111/82; PULSE 81; RESP 18; O2SAT 100
[2022-08-31 07:58] VITALS: BP 120/80; PULSE 72; RESP 14; O2SAT 100
[2022-08-31 08:08] VITALS: BP 130/84; PULSE 69; RESP 20; O2SAT 100
== END 2022-08-31 08:13 | disposition home or self-care (01) ==
PROVIDERS: PCP Family Medicine; Visit Provider Internal Medicine Gastroenterology
PROC: 0DJD8ZZ Inspection of Lower Intestinal Tract, Via Natural or Artificial Opening Endoscopic (ICD-10-PCS; CPT 45378; principal; 2022-08-31 07:30)
DX: Z12.11 Encounter for screening for malignant neoplasm of colon (principal); I10 Essential (primary) hypertension; E78.5 Hyperlipidemia, unspecified; K21.9 Gastro-esophageal reflux disease without esophagitis; M06.9 Rheumatoid arthritis, unspecified; Z87.891 Personal history of nicotine dependence
CPT/HCPCS: 45378; J2001; J2704; J7120

== ENCOUNTER → 2022-09-11 07:37 | Outpatient (CLI) | payer OTHER, SELFPAY ==
--- NOTE | ~2022-09-11 | US_ITS ---
US breast LT limited INDICATION: Follow-up left breast mass TECHNIQUE: Dedicated left breast ultrasound COMPARISON: 03/12/2022 FINDINGS: The left breast is composed of normal heterogeneous echotexture without focal solid or cyst ic mass. The 3 mm mass of the left breast seen on prior examination not visualized on the current calista dy. IMPRESSION: 1: Normal left breast ultrasound. Routine yearly screening mammogram and regular clinical breast examination are recommended. BI-RADS CATEGORY 1 - NEGATIVE Reviewed, dictated and finalized at location A.
== END ==
PROVIDERS: PCP Family Medicine; Visit Provider Obstetrics & Gynecology
DX: R92.8 Other abnormal and inconclusive findings on diagnostic imaging of breast (principal)
CPT/HCPCS: 76642

== ENCOUNTER 2023-02-23 13:10 | Emergency (ER) | payer OTHER, SELFPAY ==
[2023-02-23 13:17] VITALS: BP 138/83; PULSE 100; RESP 20; TEMP 36.8; O2SAT 99
--- NOTE | 2023-02-23 13:38 | ED.GENADULT ---
HPI - General Adult General Chief complaint: Upper Respiratory Infection Stated complaint: Right Ear Problem/Sinus Pain Source: patient, RN notes reviewed and old records reviewed Mode of arrival: ambulatory Limitations: no limitations History of Present Illness HPI narrative: 48-year-old female presents to [facility] with complaints of sinus congestion, sinus pressure, bilateral ear pressure that started 1 week ago. Patient taking [id number] medications with no relief. Patient states is now also having a right earache and bloody nasal discharge. MD complaint: Earache Onset (ago): week(s) (1) Related Data Home Medications Medication Instructions Recorded Confirmed amlodipine 5 mg tablet 5 mg PO DAILY 02/23/23 02/23/23 losartan 100 mg tablet 100 mg PO DAILY 02/23/23 02/23/23 rosuvastatin 10 mg tablet 10 mg PO DAILY 02/23/23 02/23/23 Allergies Allergy/AdvReac Type Severity Reaction Status Date / Time Penicillins Allergy Unknown Unknown Verified 02/23/23 13:38 Sulfa (Sulfonamide Allergy Unknown Unknown Verified 02/23/23 13:38 Antibiotics) tetracycline Allergy Unknown Unknown Verified 02/23/23 13:38 Review of Systems Constitutional: Constitutional: Reports no additional constitutional complaints, Denies body ache(s), Denies chills, Denies fatigue, Denies fever(s) and Reports headache(s) Eyes: Eyes: Reports no additional eye complaints and Denies blurry vision ENT: Reports system reviewed and no additional complaints, except as documented, Denies vertigo, Denies dizziness, Denies ear discharge, Reports otalgia, Denies facial pain, Reports headache(s), Reports nasal congestion, Reports nasal discharge ( Bloody), Reports sinus pain, Reports sinus pressure and Denies sore throat Cardiovascular: Cardiovascular: Reports no additional cardiovascular complaints, Denies chest pain, Denies chest pain at rest, Denies rapid heart rate and Denies dyspnea Respiratory: Respiratory: Reports no additional respiratory complaints, Denies chest congestion, Reports cough, Denies pain on inspiration, Denies pain with cough and Denies dyspnea Gastrointestinal: Gastrointestinal: Denies abdominal pain, Denies diarrhea, Denies nausea and Denies vomiting Integumentary/Breasts: Skin/Breast: Denies rash Neurologic: Reports system reviewed and no additional complaints, except as documented, Denies vertigo, Denies dizziness and Denies headache(s) Endocrine: Endocrine: Denies fatigue PMFSH Past Medical History Medical History Chronic GERD HLD (hyperlipidemia) HTN (hypertension) Rheumatoid arthritis Surgical History Surgical History H/O hand surgery rt H/O left knee surgery H/O right knee surgery Family History Family History Mother Family history of osteoarthritis Hypertension Father Hypertension Grandparent Hypertension Other Family history of arthritis Social History Social History Smoking packs per day: 0.5 Smoking cigarettes per day: 10.0 Years smoked: 10 Smoking pack-years: 5.00 Smoking status: Former smoker Tobacco type: cigarettes Second hand tobacco smoke exposure: No Smoking end date: 02/26/08 Alcohol intake: current Drinks per week: 2 Substance use: never Substance use type: does not use Living arrangements: with family Occupation/Education: occupation Gender identity (if verbalized by the patient): Female Sexual Orientation (if Verbalized by the Patient): Straight or Heterosexual Spiritual care concerns: No Comments At the time of my signature, I reviewed and agree with the nursing past medical, surgical, social, and family history. There is no relevant family history pertinent to the patient complaint. Exam Const: General: cooperativ
== END 2023-02-23 13:45 | disposition home or self-care (01) ==
PROVIDERS: Emergency Provider Registered Nurse; PCP Family Medicine
DX: H66.001 Acute suppurative otitis media without spontaneous rupture of ear drum, right ear (principal); Z87.891 Personal history of nicotine dependence; K21.9 Gastro-esophageal reflux disease without esophagitis; E78.5 Hyperlipidemia, unspecified; I10 Essential (primary) hypertension; M06.9 Rheumatoid arthritis, unspecified
CPT/HCPCS: 99213; G0463

== ENCOUNTER 2023-08-19 15:15 | Outpatient (CLI) | payer OTHER, SELFPAY ==
--- NOTE | ~2023-08-19 | MM_ITS ---
EXAMINATION: MM screening pierre BI w sylvia HISTORY: Screening mammogram TECHNIQUE: Craniocaudal and mediolateral oblique 3-D tomosynthesis images were obtained and synthetic 2-D images were generated. CAD analysis was submitted and interpreted. COMPARISON: 03/12/2022, 02/14/2022, 07/20/2020, 11/21/2017 BREAST PARENCHYMAL COMPOSITION:Dense: The breasts are heterogeneously dense, which may obscure small masses. FINDINGS: Stable mass with focal coarse calcifications at the inner right breast, compatible with fib roadenoma. No suspicious mass, calcification, or architectural distortion are identified in either br east to suggest malignancy. There has been no suspicious interval change. IMPRESSION: No mammographic evidence of malignancy. Recommend routine screening mammography in one year. BI-RADS Category 2: Benign finding(s). Reviewed, dictated and finalized at location .
== END 2023-08-19 15:16 ==
LOC: MICIMG 15:16
PROVIDERS: PCP Obstetrics & Gynecology; Visit Provider Obstetrics & Gynecology
DX: Z12.31 Encounter for screening mammogram for malignant neoplasm of breast (principal)
CPT/HCPCS: 77063; 77067

== ENCOUNTER 2023-09-03 07:51 | Outpatient (CLI) | payer OTHER, SELFPAY ==
--- NOTE | ~2023-09-03 | US_ITS ---
COMPLETE ABDOMINAL ULTRASOUND Ordering provider: Robert Clayton, History: . RUQ tenderness . Comparison: None. FINDINGS: LIVER: Normal size. Fat infiltration with increased echotexture. No focal hepatic lesions or perihepa tic fluid collections are identified. GALLBLADDER: Multiple stones.. No evidence for sludge, gallbladder wall thickening or pericholecystic fluid collections. The wall thickness is 3 mm. A negative sonographic Serrano's sign was noted. BILIARY DUCTS: No evidence for intra or extrahepatic biliary dilation. Common bile duct measures 3 mm in diameter which is within normal limits. PANCREAS: Normal. KIDNEYS: Right measures 12.6 cm in length There is no evidence for hydronephrosis, solid renal mass, renal calculi or perinephric fluid collections. No renal cysts. UPPER ABDOMINAL AORTA: Normal in caliber. IVC: Patent. FREE FLUID: None. IMPRESSION: 1. Cholelithiasis with no evidence of cholecystitis. 2. Fat infiltration of the liver. Reviewed, dictated and finalized at location A.
== END 2023-09-03 07:52 ==
LOC: MICIMG 07:52
PROVIDERS: PCP Family Medicine; Visit Provider Family Medicine
DX: K80.20 Calculus of gallbladder without cholecystitis without obstruction (principal); K76.0 Fatty (change of) liver, not elsewhere classified
CPT/HCPCS: 76705

== ENCOUNTER 2024-04-22 08:23 | Outpatient (CLI) | payer OTHER, SELFPAY ==
--- NOTE | ~2024-04-22 | CT_ITS ---
EXAMINATION: CT sinus wo con DATE: 04/22/2024 08:36 INDICATION: Ostiomeatal obstruction with sinus pain TECHNIQUE: Computed tomography (CT) of the paranasal sinuses was performed without intravenous contra st. Coronal reconstructions were obtained. Iterative reconstruction technique was employed. The dose- length product was 420.49 mGy-cm. COMPARISON: None FINDINGS: No mucosal thickening or fluid within the paranasal sinuses. The bilateral ostiomeatal units are dorsey nt. Nasal septum is midline. Bilateral orbits are normal. Mastoid air cells and middle ear cavities a re normal. IMPRESSION: 1. Normal sinus CT. Reviewed, dictated and finalized at location B. TAIL WAITRESS IMPRESSION: 1. Normal sinus CT.
== END 2024-04-22 08:24 | disposition home or self-care (01) ==
LOC: GOSHIMG 08:24
PROVIDERS: PCP Nurse Practitioner Family; Visit Provider Otolaryngology
DX: J34.89 Other specified disorders of nose and nasal sinuses (principal); G43.909 Migraine, unspecified, not intractable, without status migrainosus; R09.81 Nasal congestion
CPT/HCPCS: 70486

== ENCOUNTER 2024-10-13 16:34 | Emergency (ER) | payer OTHER, SELFPAY ==
--- NOTE | ~2024-10-13 | XR_ITS ---
XR ankle RT min 3V 10/13/2024 18:41 INDICATION: Right ankle pain PROCEDURE: 3 views right ankle COMPARISON: 08/06/2019 FINDINGS: Fracture, dislocation or subluxation is not identified. The soft tissues appear within normal limits. No foreign bodies are identified. IMPRESSION: 1: NO ACUTE BONE OR JOINT ABNORMALITY IDENTIFIED. Reviewed, dictated and finalized at location A.
--- OUTSIDE RECORDS SUMMARY | 2024-10-13 15:45 | XMS_ITS | Encounter Summary ---
Author Organization [facility] Healthcare Address [address] [place] [address] Care Team Providers Care Digital Assistant Name Role Phone Rebecca Renteria NP Primary Care Provider [phone] Vasiliy Caba MD Unavailable [phone] Reason for Visit * Reason Comments Leg Pain Right calf, was putt ing groceries in her car an hour ago and heard and felt a loud pop in the back of her calf and now it is exteremly hard to walk and put pressure on it. Encounter Details Date Type Department Care Team (Late st Contact Info) Description 10/13/2024 3:45 PM CDT Office Visit [facility] at [address] [address] Kathia Davila NP [address] [place] [address] [address] [place] [address] Injury of calf (Primary Dx); Unable to bear weight on right lower extremity; Elevated blood pressure reading in office with diagnosis of hypertension Social History Tobacco Use Types Packs/Day Years Used Date Smoking Tobacco: Former Cigarettes Passive Smoke Exposure: Never Smokeless Tobacco: Never Alcohol Use Standard Drinks/Week Comments Yes 0 (1 standard drink = 0.6 oz pur e alcohol) occassionally AUDIT-C Answer Date Recorded Q1: How often do you have a drink containing alc ohol? 2-3 times a week 10/22/2023 Q2: How many drinks containi ng alcohol do you have on a typical day when you are drinking? 1 or 2 10/22/2023 Frequency of Binge Drinking Not on file 09/26 PHQ-2 Answer Date Recorded PHQ-2 Total Score (If total score is 3 or more points, staff should administer the PHQ-9) 0 04/27/2024 Personal Safety Answer Date Recorded Have you ever been in or are you currently in a harmful physical or emotional relationship or is someone making you feel afraid or unsafe? 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 file Not on file Not on file documented as of this encounter Last Filed Vital Signs Vital Sign Reading Time Taken Comments Blood Pressure 138/92 10/13/2024 4:16 PM CDT Pulse 86 10/13/2024 3:54 PM CDT Temperature 36.3 C (97.3 F) 10/13/2024 3:54 PM CDT Respiratory Rate 18 10/13/2024 3:54 PM CDT Oxygen Saturation 98% 10/13/2024 3:54 PM CDT Inhaled Oxygen Concentration - - Weight 84.8 kg (187 lb) 10/13/2024 3:54 PM CDT Height 180.3 cm (5' 10.98) 10/13/2024 3:54 PM C DT Body Mass Index 26.09 10/13/2024 3:54 PM CDT documented in this encounter Progress Notes * Kathia Davila, DEPLOYMENT SPECIALIST - 10/13/2024 3:45 PM CDT Images from the original note were not included. Subjective/Objective Patient ID: Meghann Weeks is a 49 y.o. female. This patient has verbally consented to recording this visit in order to utilize AI technology in generating this note. Chief Complaint Leg Pain (Right calf, was putting groceries in her car an hour ago and heard and felt a loud pop inthe back of her calf and now it is exteremly hard to walk and put pressure on it.) History of Present Illness Meghann Weeks is a 49 year old female who presents with acute right lower leg pain after lifting groceries. She experienced acute, excruciating pain in her right lower leg while bending to load groceries into her car. A 'pop' sensation was felt at the time of the incident, which occurred earlier today. Thepain is localized to the calf area and does not radiate. The pain is exacerbated by flexing her toes towards her nose. She rates her pain as a 6 out of 10 while sitting, but it becomes excruciating with pressure. She is unable to walk due to the severity of the pain; 10/10. No pain in the anterior part of her leg or ankle. Her past medical history is significant for hypertension. Review of Systems All other systems reviewed and are negative. Physical Exam MEASUREMENTS: Height- 5'11. EXTREMITIES: No noticeable swelling or palpable bulge or mass in the leg. Physical Exam Vitals reviewed. Constitutional: General: She is not in acute distress. Appearance: Normal appearance. She is not ill-appearing. HENT: Head: Normocephalic. Mouth/Throat: Lips: [place]. Cardiovascular: Rate and Rhythm: Normal rate. Pulmonary: Effort: Pulmonary effort is normal. Breath sounds: Normal breath sounds. Musculoskeletal: Right lower leg: Tenderness present. No deformity or lacerations. Legs: Comments: Unable to walk/bear weight due to pain Skin: General: Skin is warm. Neurological: Mental Status: She is alert and oriented to person, place, and time. Psychiatric: Mood and Affect: Mood normal. Vitals: 10/13/24 1554 10/13/24 1616 BP: (!) 158/111 138/92 Pulse: 86 Resp: 18 Temp: 36.3 ??C (97.3 ??F) SpO2: 98% Weight: 84.8 kg (187 lb) Height: 180.3 cm (5' 10.98) No results found. Past Medical History: Diagnosis Date Anxiety Arthritis Calculus of gallbladder without cholecystitis without obstruction 09/12/2023 Elevated LFTs 05/02/2017 GERD (gastroesophageal reflux disease) Hypertension PONV (postoperative nausea and vomiting) Rheumatoid arthritis (HCC) Current Outpatient Medications: atogepant (Qulipta) 60 mg tablet, Take 60 mg by mouth daily, Disp: 30 tablet, Rfl: 3 azelastine (ASTELIN) 137 mcg (0.1 %) nasal spray, Administer 1 spray into each nostril 2 (two) times a day Use in each nostril as directed, Disp: 30 mL, Rfl: 1 estradioL (ESTRACE) 1 mg tablet, Take 1 tablet (1 mg total) by mouth daily, Disp: , Rfl: hydroCHLOROthiazide 12.5 mg tablet, Take 1 tablet (12.5 mg total) by mouth daily, Disp: 90 tablet, Rfl: 1 Kyleena IUD, , Disp: , Rfl: losartan (COZAAR) 100 mg tablet, TAKE 1 TABLET BY MOUTH EVERY DAY, Disp: 90 tablet, Rfl: 1 rosuvastatin (CRESTOR) 10 mg tablet, TAKE 1 TABLET BY MOUTH EVERY DAY, Disp: 90 tablet, Rfl: 1 ubrogepant (Ubrelvy) 100 mg tablet, Take 1 tablet (100 mg total) by mouth once as needed for migraine May repeat dose once in 2 hours if no relief. Do not exceed 2 doses in 24 hours., Disp: 10 tablet, Rfl: 1 UNABLE TO FIND, daily Med Name: Everardo Lehman, Disp: , Rfl: docusate sodium (Colace) 100 mg capsule, Take 1 capsule (100 mg total) by mouth 2 (two) times a dayfor 14 days (Patient not taking: Reported on 06/29/2024), Disp: 28 capsule, Rfl: 0 polyethylene glycol (MIRALAX) 17 gram/dose bulk powder, Take 17 g by mouth daily (Patient not taking: Reported on 12/02/2023), Disp: 510 g, Rfl: 0 Allergies Allergen Reactions Sulfa Shortness of breath And rash also Tetracycline Shortness of breath And rash also Penicillins Rash Social History Tobacco Use Smoking status: Former Types: Cigarettes Passive exposure: Never Smokeless tobacco: Never Substance and Sexual Activity Drug use: Not Currently Frequency: 2.0 times per week Types: Alcohol Comment: wine Sexual activity: Defer Alcohol Use: Unknown (10/22/2023) AUDIT-C Frequency of Alcohol Consumption: 2-3 times a week Average Number of Drinks: 1 or 2 Frequency of Binge Drinking: Not on file Past Surgical History: Procedure Laterality Date CHOLECYSTECTOMY OTHER SURGICAL HISTORY rt hand surgery, fusion OTHER SURGICAL HISTORY lt knee surgery x 2, arthroscopy TONSILLECTOMY Assessment/Plan 1. Injury of calf (Primary) 2. Unable to bear weight on right lower extremity 3. Elevated blood pressure reading in office with diagnosis of hypertension Results No results found for this or any previous visit (from the past 4 hours). Assessment & Plan Acute right lower leg pain Acute pain in right lower leg after a popping sensation, likely involving muscular, tendon, or ligament injury. Further imaging recommended for diagnosis. - Provide crutches to offload weight. - Recommend ER evaluation for imaging and diagnosis. - Advise on potential need for orthopedic consultation if significant injury is found. Education --GO TO ER Disposition Treatment plan including expectations, follow up, and return precautions discussed with patient/parent, verbalizes understanding. Medication dosage, use, and potential adverse reactions discussed with patient/parent. Advised to follow up with PCP if symptoms do not resolve as expected or sooner if condition worsens. Signs/symptoms warranting ER evaluation reviewed. Patient and/or guardian was given an opportunity to ask questions, questions answered. Kathia Davila NP This office note has been partially dictated using Glycode software, and as a result portions of the record may have been created with this software. Occasional wrong-word or '[id number]' substitutions may have occurred due to the inherent limitations of voice recognition software. Read the chartcarefully and recognize, using context, where substitutions have occurred. Cosigned by Jack Henry MD at 10/13/2024 4:20 PM CDT documented in this encounter Plan of Treatment Not on file documented as of this encounter Visit Diagnoses Diagnosis Injury of calf- Primary Unable to bear weight on right lower extremity Elevated blood pressure reading in office with diagnosis of hypertension documented in this encounter Care Teams Digital Assistant Relationship Specialty Start Date End Date Rebecca Renteria NP [address] [facility] [address] [place] [address] PCP - General Family Medicine 03/05/23 Vasiliy Caba MD [address] [place] [address] Referring Physician Obstetrics and Gynecology 03/05/23 documented as of this encounter
--- OUTSIDE RECORDS SUMMARY | 2024-10-13 15:45 | XMS_ITS | Encounter Summary ---
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 HENT: Head: Normocephalic. Mouth/Throat: Lips: [place]. Cardiovascular: Rate and Rhythm: Normal rate. Pulmonary: [...] office note has been partially dictated using Pidefarma software, and as a result portions of the record may have been created with this software. Occasional wrong-word or '[id number]' substitutions may have occurred due to the [...] hypertension documented in this encounter Care Teams Scientific Director Relationship Specialty Start Date End Date Rebecca Renteria NP [address] [facility] [address] [place] [address] PCP - General Family Medicine 03/05/23 Vasiliy Caba MD [address] [place] [address] Referring Physician Obstetrics and Gynecology 03/05/23 documented as of this encounter
--- OUTSIDE RECORDS SUMMARY | 2024-10-13 16:38 | XMS_ITS | Clinical Summary ---
Author Organization [facility] [address] Address [address] [place] [address] Care Team Providers Care Lap Runner Name Role Phone Isaiah Almonte MD Primary Care Provider [phone] Source Comments [facility],non-owned Affiliates and Associated Physician Practices is amultiple site organization consisting of ambulatory clinics and hospital sitesin [place], [place], [place] and [place]. This disclosure is being madepursuant to the Care Everywhere program and may not contain all information available regarding this patient. Last updated 17.[facility] Allergies Active Allergy Reactions Criticality Noted Date Comments Morphine 02/21/2011 n/v Penicillins Anaphylaxis 06/02/2009 Sulfa Drugs Shortness of Breath,Rash High 06/02/2009 Tetracycline Shortness of Breath,Rash 0 Tramadol Headache 02/12/2011 Medications * Be aware that medications may not be up to date on this document. Alwaysverify current medications with the patient. levonorgestrel-e thinyl estradiol (SEASONIQUE) 0.15-0.03 &0.01 MG tablet Take 1 Tab by mouth daily. Active omeprazole (PRILOSEC) 40 MG capsule Take 40 mg by mouth daily before breakfast. Active Indomethacin CR 75 MG CPCR Take 1 Cap by mouth 2 times daily. 60 Cap 0 02/28/2011 Active naproxen (NAPROSYN) 500 MG tablet Take 1 Tab by mouth 2 times daily. 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 Allen 05/2009; may need surgery Family History Medical History Relation Name Comments Arthritis - Osteo Maternal Grandmother Arthritis - Osteo Mother Diabetes Mother Hypercholesterolemia Mother Hypertension Mother Sjogren's Syndrome Mother Cancer - Breast Paternal Grandmother Relation Name Status Comments Maternal Grandmother Mother Paternal Grandmother Social History Tobacco Use Types Packs/Day Years Used Date Smoking Tobacco: Former Cigarettes Q uit: 09/20/2010 Smokeless Tobacco: Never Alcohol Use Standard Drinks/Week Comments Yes 0 (1 standard drink = 0.6 oz pur e alcohol) AUDIT-C Answer Date Recorded Frequency of Alcohol Consumption 2-3 times a wee k 04/30/2019 Average Number of Drinks Not on file 020 Frequency of Binge Drinking Not on file 06/2019 Comments No Sex and Gender Information Value Date Recorded Sex Assigned at Not on file Legal Sex Female 4:21 AM COUNTY DEMONSTRATOR Gender Identity Not on file Sexual Orientation Not on file Last Filed Vital Signs Vital Sign Reading Time Taken Comments Blood Pressure 113/77 02/21/2011 10:45 AM COUNTY DEMONSTRATOR Pulse 79 02/21/2011 10:45 AM COUNTY DEMONSTRATOR Temperature 36.8 C (98.3 F) 02/21/2011 10:45 AM COUNTY DEMONSTRATOR Respiratory Rate 18 02/21/2011 10:4 5 AM COUNTY DEMONSTRATOR Oxygen Saturation 98% 02/21/2011 10: 45 AM COUNTY DEMONSTRATOR Inhaled Oxygen Concentration - - Weight 84.7 kg (186 lb 11.7 oz) 02/21/2011 5:46 AM COUNTY DEMONSTRATOR Height 180.3 cm (5' 11) 02/21/2011 5:46 AM COUNTY DEMONSTRATOR Body Mass Index 26.04 02/21/2011 5:46 AM COUNTY DEMONSTRATOR Plan of Treatment Health Maintenance Due Date Last Done Comments COLOGUARD (AGES 45-75) - COL ON CA SCREENING 1976 COLON MONITORING 1976 COLONOSCOPY - COLON CA SCREENING 1976 CT COLONOGRAPHY - COLON CA SCREENING 1976 Colorectal Cancer Screening 1976 FIT - COLON CA SCREENING 1976 FLEX SIG - COLON CA SCREENING 1976 LIPID TESTING 1976 MAMMOGRAM 1976 HIV SCREENING 02/05/1991 HEPATITIS C SCREENING 02/01/1994 DTAP/TDAP/TD VACCINES (1 - Tdap) 02/05/1995 HEPATITIS B VACCINE (1 of 3 - 19+ 3-dose series) 02/05/1995 COVID-19 VACCINE (1 - 2023-2 5 season) 2023 DEPRESSION SCREENING 02/26/2024 INFLUENZA VACCINE (#1) 2024 ZOSTER VACCINE (1 of 2) 02/05/2026 HIB VACCINE Aged Out No longer eligi ble based on patient's age to complete this topic HPV VACCINE Aged Out No longer eligi ble based on patient's age to complete this topic MENINGOCOCCAL (Group B) VACC INE SHARED DECISION-MAKING Aged Out No longer eligibl e based on patient's age to complete this topic MENINGOCOCCAL GROUPS A/C/Y/W VACCINE Aged Out No longer eligible b ased on patient's age to complete this topic PNEUMOCOCCAL VACCINE Aged Out No long er eligible based on patient's age to complete this topic Insurance [employer] [place] [address] [employer] Care Teams Lap Runner Relationship Specialty Start Date End Date Isaiah Almonte MD [address] [place] [address] PCP - General Family Medicine 12/19/16
--- OUTSIDE RECORDS SUMMARY | 2024-10-13 16:38 | XMS_ITS | Clinical Summary ---
Author Organization [facility] Address [address] [place] [address] Care Team Providers Care Budget Officer Name Role Phone Domonique Hernandez NP Primary Care Provider [phone] Vasiliy Caba MD Unavailable [phone] Allergies Active Allergy Reactions Criticality Noted Date Comments Penicillins Rash Medium Sulfa Shortness of breath High And rash also Tetracycline Shortness of breath High And rash also Medications Kyleena IUD 2 Active estradioL (ESTRACE) 1 mg tablet Take 1 tablet (1 mg total) by mouth daily 4 Active UNABLE TO FIND daily Med Name: Everardo Lehman Active docusate sodium (Colace) 100 mg capsuleIndicati ons:constipatio n Take 1 capsule (100 mg total) by mouth 2 (two) times a day for 14 days 28 capsule 4 Active Additional Information Patient not taking.Reported on 06/29/2024 polyethylene glycol (MIRALAX) 17 gram/dose bulk powder Take 17 g by mouth daily 510 g 4 Active Additional Information Patient not taking.Reported on 06/29/2024 ubrogepant (Ubrelvy) 100 mg tablet Take 1 tablet (100 mg total) by mouth once as needed for migraine May repeat dose once in 2 hours if no relief. Do not exceed 2 doses in 24 hours. 10 tablet 1 5 Active azelastine (ASTELIN) 137 mcg (0.1 %) nasal spray Administer 1 spray into each nostril 2 (two) times a day Use in each nostril as directed 30 mL 1 5 Active hydroCHLOROthia zide 12.5 mg tablet Take 1 tablet (12.5 mg total) by mouth daily 90 tablet 1 5 Active losartan (COZAAR) 100 mg tablet TAKE 1 TABLET BY MOUTH EVERY DAY 90 tablet 1 5 Active atogepant (Qulipta) 60 mg tablet Take 60 mg by mouth daily 30 tablet 3 5 Active rosuvastatin (CRESTOR) 10 mg tablet TAKE 1 TABLET BY MOUTH EVERY DAY 90 tablet 1 5 Active Active Problems Problem Noted Date Diagnosed Date Intractable chronic migraine without aura and without status migrainosus 06/30/2024 Transient alteration of awareness 06/30/2024 Paresthesia of skin 06/30/2024 S/P laparoscopic cholecystectomy 11/07/2023 Chest pain 07/09/2023 Palpitations 03/27/2023 Assessment & Plan (03/27/2023 4:21 PM [employer]GR[employer]): EKG fine in office, still may be related to anxiety. Could be related to BP. However, given the description of symptoms and worsening will get an event monitor to ensure normal rhythms when sx present. Will increase Amlodipine to 10 mg also. Hypertension 03/05/2023 Assessment & Plan (11/14/2023 8:23 AM CDT): BP looks great in office, continuing Amlodipine and Losartan. Assessment & Plan (06/21/2023 9:53 AM CDT): Home BP's ranging 130-150's/80-90's. Restart Losartan 25 mg daily and continue Amlodipine 10 mg daily. Assessment & Plan (05/08/2023 8:41 AM CDT): BP much improved today. Continuing Amlodipine 10 mg and Losartan 50 mg. Assessment & Plan (03/05/2023 2:54 PM [employer]GR[employer]): BP stable in office, continues Losartan and Amlodipine. Updated labs ordered, 6 months ago renal function looked good. Anxiety 03/05/2023 Assessment & Plan (05/08/2023 8:42 AM CDT): Not feeling anxious, holding on Cymbalta. Assessment & Plan (03/27/2023 4:24 PM EDITOR [employer]CHO[employer]GRAPH): Start the Duloxetine 30 mg daily, possibly contributing to symptoms. Assessment & Plan (03/05/2023 2:55 PM EDITOR [employer]OTOGRAPH): Not at goal, feels constantly on edge and heightened anxiety, has occasional panic attacks, some that have caused her to go to the ER. Start Lexapro, education provided. Digital mucous cyst of finger of left hand 08/15 Tinnitus, bilateral 07/14/2020 Finger lesion 06/10/2020 Assessment & Plan (06/10/2020 3:18 PM CDT): Has a lt hand 3d dip lesion, to see her hand ortho dr silva. Dorsalgia 09/18/2019 Assessment & Plan (09/18/2019 1:23 PM CDT): Check lumbar xray and start PT Proteinuria 08/21/2019 Assessment & Plan (10/17/2020 8:57 AM CDT): Seeing dr villegas who advised pt to take NO nsaid's. Assessment & Plan (06/10/2020 10:11 AM CDT): Seeing dr villegas who advised pt to take NO nsaid's. Assessment & Plan (02/22/2020 8:30 AM EDITOR SCHO[employer] PHOTOGRAPH): Seeing dr villegas who advised pt to take NO nsaid's. Assessment & Plan (01/15/2020 7:57 AM EDIT[employer] PHOTOGRAPH): Seeing dr villegas who advised pt to take NO nsaid's. Assessment & Plan (10/23/2019 8:31 AM CDT): Seeing dr villegas who advised pt to take NO nsaid's. Assessment & Plan (09/17/2019 4:21 PM CDT): Seeing dr villegas who advised pt to take NO nsaid's. Assessment & Plan (08/21/2019 4:59 PM CDT): Seeing dr villegas who advised pt to take NO nsaid's. Bilateral hip pain 07/27/2019 Assessment & Plan (09/18/2019 1:24 PM CDT): Check bilat hip xrays and start PT. Pt informed that without PT we can't get lt hip MRI, possible labrum tear needs to be r/o if lt hip pain continues but this pain could also be coming from her lumbar spine. Seen with dr campo. Assessment & Plan (07/27/2019 9:47 AM CDT): Check bilat hip xrays. Nl rom Pupil irregular of left eye 07/27/2019 Assessment & Plan (08/21/2019 3:25 PM CDT): Normal brain mri. Advised to f/u with neuro for this and her headaches. Has seen opth. Assessment & Plan (07/27/2019 9:45 AM CDT): See discussion on headache. Other complicated headache syndrome 07/27/2019 Assessment & Plan (04/27/2024 1:56 PM EDITOR [employer]GRAPH): Will trial daily Quilipta and Ubrelvy prn. Education provided. Also, Neurology referral placed as we have not achieved success despite multiple medication trials (see HPI). Some symptoms sound sinus in nature, discussed trying daily Zyrtec and nasal sprays. Toradol injection given in office. Tolerated well, no issues. Pre-injection pain: 10 Post-injection pain: 06/04 Assessment & Plan (08/14/2023 10:49 AM CDT): Still persisting, daily headache and builds into what sounds like a migraine (nausea, light/sound sensitivity). OTC Excedrin and Ibuprofen take edge off. Nortriptyline caused side effects of feeling hungover. Trial Topamax BID and Nurtec prn (samples provided today). Assessment & Plan (06/21/2023 9:53 AM CDT): Possibly related to blood pressure, would like her to restart her Losartan at 25 mg daily. Will also trial Nortriptyline nightly, start low dose first and then will follow up in 4 weeks. Assessment & Plan (05/08/2023 8:41 AM CDT): MRI and MRA normal. Symptoms have resolved since stopping her Estradiol. Follow up if symptoms return. Assessment & Plan (03/27/2023 4:23 PM EDITOR [employer]GRAPH): Has been evaluated in the past (2019) for similar symptoms and no clear answers. Symptoms have returned over the past 1 month. Per SNOOP10 will get MRI to evaluate further. ER precautions discussed. Assessment & Plan (07/27/2019 9:45 AM CDT): Has had headaches for a month with dilated lt pupil and dizziness. Will check brain mri wo contrast. Seen with dr campo. If mascorro gets worse to go to er. Will consider neuro referral also. Dizziness 07/27/2019 Assessment & Plan (03/27/2023 4:24 PM EDITOR [employer]GRAPH): Given the pounding of the neck and head throbbing, will get carotid US Assessment & Plan (07/27/2019 9:47 AM CDT): Check brain mri. Neck pain 07/27/2019 Assessment & Plan (10/17/2020 8:57 AM CDT): Has a disc bulge c5-c6with marked narrowing, seen spine ortho. Assessment & Plan (06/10/2020 10:11 AM CDT): Has a disc bulge c5-c6with marked narrowing, seen spine ortho. Assessment & Plan (02/22/2020 8:29 AM EDITOR [employer]GRAPH): Has a disc bulge c5-c6with marked narrowing, seen spine ortho. Assessment & Plan (01/15/2020 7:57 AM EDIT[employer]CHO[employer] PH[employer]GRAPH): Has a disc bulge c5-c6with marked narrowing, seen spine ortho. Assessment & Plan (10/23/2019 8:31 AM CDT): Has a disc bulge c5-c6with marked narrowing, seen spine ortho. Assessment & Plan (09/18/2019 1:26 PM CDT): Has a disc bulge c5-c6with marked narrowing, seen spine ortho. Assessment & Plan (08/26/2019 3:41 PM CDT): C spine xray showed moderate C spine oa. Worsening neck pain after PT yesterday, will defer additional visits with PT pending MRI findings which she is scheduled for next 08/31/2019. In the meantime, will begin trial of cyclobenzaprine 10 mg qHS and monitor response. Assessment & Plan (08/21/2019 4:57 PM CDT): Still has neck pain and at times radiates to lt shoulder and upper arm. Had 2 weeks of PT with slight improvement. C spine xray showed C spine oa. Will get c spine mri wo contrast. Assessment & Plan (07/27/2019 9:46 AM CDT): Check neck xray and start PT. Pigment dispersion syndrome of both eyes 020 Anisocoria 05/04/2019 Lymphocytosis 07/31/2017 [place] [place] [facility] without rheumatoid factor 05/02/2017 Assessment & Plan (03/05/2023 2:54 PM [employer]OR [employer]GRAPH): Used to see Rheumatology and was on medication, patient did not like the side effects so stopped. Symptoms have been stable. Discussed if they worsen then we may need to see Rheumatology again. Assessment & Plan (10/17/2020 8:57 AM CDT): Mod cdai but feels better. On xeljanz for only a month, will give it longer to work. Failed orencia at last visit so it was stopped. Continue arava 10mg po every day. In past her hand and foot xrays showed polyarticular arthritis, no erosions. Check labs today. Had covid 19 infection 10/2019. Assessment & Plan (07/18/2020 3:24 PM CDT): Mod cdai but feels better. On xeljanz for only a month, will give it longer to work. Failed orencia at last visit so it was stopped. Continue arava 10mg po every day. In past her hand and foot xrays showed polyarticular arthritis, no erosions. Check labs today. Had covid 19 infection 10/2019. Assessment & Plan (06/10/2020 3:32 PM CDT): Failing orencia. Stop it and go to xeljanz xr 11 mg po every day. Discussed potential se of xeljanz including risk of clots, risk of infection, rashes, lft elevation, anemia, low wbc, elevated cholesterol. No hx of a fib, dvt, pe. Continue arava 10mg po every day. Seen with Dr Campo today. In past her hand and foot xrays showed polyarticular arthritis, no erosions. Check labs today. Had covid 19 infection 10/2019. Assessment & Plan (02/22/2020 3:09 PM [employer]GRAPH): High cdai. Failing humira, stop it and change to orencia sq. Discussed risks and se of orencia sq. Continue arava 10mg po every day. In past her hand and foot xrays showed polyarticular arthritis, no erosions. Check labs today. Labs stable 01/07/2020. Had covid 19 infection 10/2019. Assessment & Plan (01/15/2020 7:59 AM [employer]OR [employer]CHO[employer]GRAPH): mod cdai but improved since she started arava and Humira. Hand US showed worsening arthritis. Hand and foot xrays showed polyarticular arthritis, no erosions. Check labs. Labs stable 01/07/2020. Assessment & Plan (10/26/2019 8:57 AM CDT): mod cdai but improved since she started arava and Humira. Hand US showed worsening arthritis. Hand and foot xrays showed polyarticular arthritis, no erosions. Check labs. Assessment & Plan (09/18/2019 1:26 PM CDT): High cdai. Hand US showed worsening arthritis. Hand and foot xrays showed polyarticular arthritis, no erosions. In past she used to be on mtx and humira but had nausea with mtx. Tolerating it. Will start humira approval. She was on it for a very short time in past and had no se. Advised to come in for 1st inj to make sure no allx rxn. Discussed potential se of humira gain with pt. Seen with dr campo. Assessment & Plan (08/26/2019 3:40 PM CDT): Mod cdai. Hand US showed worsening arthritis. Hand and foot xrays showed polyarticular arthritis, no erosions. In past she used to be on mtx and humira but had nausea with mtx. On arava 10mg po daily x3 days, will continue and follow up as scheduled in 1 month. Assessment & Plan (08/21/2019 4:56 PM CDT): Images from the original note were not included. Mod cdai. Hand US showed worsening arthritis. Hand and foot xrays showed polyarticular arthritis. No erosions. In past she used to be on mtx and humira but had nausea with mtx. Will start arava 10mg po every day and have her f/u in 1month. Discussed potential se of arava including risk of infection, rashes, bone marrow suppression, diarrhea, lft elevation. Also discussed needing to restart enbrel or humira in future. Quant gold and hep b and c neg. Seen with dr campo today. Rt Hand US 07/2019 Assessment & Plan (07/27/2019 9:46 AM CDT): Mod cdai. Has not been here since 07/2017. Will recheck serologies, xrays and rt hand US. In past she used to be on mtx and humira. In pat she did not think humira helped with her joint pain. Her tinnitus did not resolve off plaquenil and neg workup by ent. seen with dr campo. 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 Assessment & Plan (07/18/2020 8:37 AM CDT): PCQ caused tinnitus Mother has CTD and possible RA Cxr neg 07/2019 avise panel neg 2016 Hep b and c neg 07/2019 Avise neg 07/2019 Quant gold neg 07/2019 Mtx caused nausea Failed Humira Failed Orencia sq, stopped 05/2020. Assessment & Plan (06/10/2020 3:32 PM CDT): PCQ caused tinnitus Mother has CTD and possible RA Cxr neg 07/2019 avise panel neg 2016 Hep b and c neg 07/2019 Avise neg 07/2019 Quant gold neg 07/2019 Mtx caused nausea Failed Humira Failed Orencia sq, stopped 05/2020. Assessment & Plan (02/22/2020 8:29 AM EDITOR SCHOOL PHOTOGRAPH): PCQ caused tinnitus Mother has CTD and possible RA Cxr neg 07/2019 avise panel neg 2016 Hep b and c neg 07/2019 Avise neg 07/2019 Quant gold neg 07/2019 Mtx caused nausea Assessment & Plan (01/15/2020 7:57 AM [employer] SCHO[employer] PH[employer]GRAPH): PCQ caused tinnitus Mother has CTD and possible RA Cxr neg 07/2019 avise panel neg 2017 Hep b and c neg 07/2019 Avise neg 07/2019 Quant gold neg 07/2019 Mtx caused nausea Assessment & Plan (10/23/2019 8:32 AM CDT): PCQ caused tinnitus Mother has CTD and possible RA Cxr neg 07/2019 avise panel neg 2017 Hep b and c neg 07/2019 Avise neg 07/2019 Quant gold neg 07/2019 Mtx caused nausea Assessment & Plan (09/17/2019 4:22 PM CDT): PCQ caused tinnitus Mother has CTD and possible RA Cxr neg 07/2019 avise panel neg 2017 Hep b and c neg 07/2019 Avise neg 07/2019 Quant gold neg 07/2019 Mtx caused nausea Assessment & Plan (08/21/2019 4:58 PM CDT): PCQ caused tinnitus Mother has CTD and possible RA Cxr neg 07/2019 avise panel neg 2016 Hep b and c neg 07/2019 Avise neg 07/2019 Quant gold neg 07/2019 Mtx caused nausea Assessment & Plan (07/27/2019 7:23 AM CDT): PCQ caused tinnitus Mother has CTD and possible RA Cxr neg 11/2016 avise panel neg 2017 Hep b and c neg 02/2016 Assessment & Plan (02/20/2017 2:33 PM [employer]OR SCHOOL [employer]OTOGRAPH): Will continue to monitor the patient with routine labs. Arthralgia 12/17/2016 Overview (02/20/2017): Neg rf, ccp, derek, lucia test Neg avise panel 12/11 U/s lt hand 01/04/17 mild to mod synovitis. Assessment & Plan (02/20/2017 2:33 PM [employer]GRAPH): Patient disease activity is low-moderate, better since starting MTX. Patient is to increase MtX to 6 tablets/week and continue Fa. Continue to hold HCQ at this time as she continues to have tinnitus. Doubt the tinnitus is related to HCQ, but will continue to have her hold this medication. Advised to f/u with ENT. Will check routine labs at the next Ov. Most recent LFTs were normal. 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 Postoperative restrictions and time needed off work have been discussed. Postoperative issues such as post cholecystectomy diarrhea have been discussed. She has a couple events planned for September and would like to try and wait until after that. We will tentatively give her a date after October 20. If symptoms would worsen before then she will give us a call. Elevated LFTs 05/02/2017 11/07/2023 Assessment & Plan (07/27/2019 7:22 AM CDT): Hx of elevated lft's. Will recheck cmp today. Encounters Date Type Department Care Team Description 10/13/2024 3:45 PM CDT Office Visit [facility] at [address] [address] Kathia Davila NP Injury of calf (Primary Dx); Unable to bear weight on right lower extremity; Elevated blood pressure reading in office with diagnosis of hypertension 08/07/2024 9:49 AM CDT - 08/07/2024 11:59 PM CDT Hospital Encounter [address] [address] Paresthesia of skin; Intractable chronic migraine without aura and without status migrainosus; Transient alteration of awareness Discharge Disposition: Discharge to home or self care 08/07/2024 9:30 AM CDT - 08/07/2024 11:59 PM CDT Hospital Encounter [address] [address] Paresthesia of skin Discharge Disposition: Discharge to home or self care 08/07/2024 8:22 AM CDT - 08/07/2024 11:59 PM CDT Hospital Encounter [facility] [address] [place] [address] Transient alteration of awareness Discharge Disposition: Discharge to home or self care 07/21/2024 Results Follow-Up [facility] at [address] [address] Domonique Hernandez NP Transthoracic Echo (TTE) Complete W Doppler/CF 07/17/2024 7:53 AM CDT - 07/17/2024 11:59 PM CDT Hospital Encounter [facility] [place] [address] Palpitations; Postural dizziness with presyncope Discharge Disposition: Discharge to home or self care from Last 3 Months Immunizations Immunization Administration Dates Next Due Influenza, Unspecified 11/14/2023(Deferr ed: Patient Refused),03/27/2023(Deferred: Patient Refused),02/25/2022 Surgical History Surgery Date Site/Laterality Comments OTHER SURGICAL HISTORY rt hand surgery, fusion OTHER SURGICAL HISTORY lt knee surgery x 2, arthroscopy TONSILLECTOMY CHOLECYSTECTOMY Medical History Medical History Date Comments Arthritis Rheumatoid arthritis (HCC) Hypertension Anxiety PONV (postoperative nausea and vomiting) GERD (gastroesophageal reflux disease) Elevated LFTs 05/02/2017 Calculus of gallbladder without cholecystitis wi thout obstruction 09/12/2023 Family History Medical History Relation Name Comments Arthritis Father Hypertension Father Arthritis Mother Hypertension Mother Breast cancer Paternal Grandmother Relation Name Status Comments Father Alive Mother Alive Paternal Grandmother Social History Tobacco Use Types Packs/Day Years Used Date Smoking Tobacco: Former Cigarettes Passive Smoke Exposure: Never Smokeless Tobacco: Never Tobacco Cessation:Counseling Given: Not Answered Alcohol Use Standard Drinks/Week Comments Yes 0 [...] on file Legal Sex Female 10:43 PM [employer]CHO[employer]GR[employer] Gender Identity Not on file Sexual Orientation Not on file 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 Not on file Not on file Not on file Obstetrics History Last Filed Vital Signs Vital Sign Reading [...] Mass Index 26.09 10/13/2024 3:54 PM CDT Plan of Treatment Health Maintenance Due Date Last Done Comments Hepatitis B Screening 02/05/1994 DTaP/Tdap/Td Vaccine (2 - Td or Tdap) 03/11/2022 03/11/2012 Covid-19 Vaccine ( season) 2023 01/28/2021, 05/03/2020, 03/30/2020 Breast Cancer Screening-Mammogram 02/26/2024 02/25/2023 Cervical Cancer Screening 02/27/2024 02/26/2023 Influenza Vaccine (#1) 2024 02/25/2022, 2012 Regular Well Visit/Exam 18-64 11/13/2024 11/14/2023 Depression Screening 04/27/2025 04/27/2024, 11/14/2023, 08/14/2023, Additional history exists Colon Cancer Screening-Colonoscopy 11/25/2032 11/25/2022 Hepatitis C Screening Completed 11/14/2023 Pneumococcal vaccine <65 Aged Out No longer eligible based on patient's age to complete this topic Medical Devices Implanted Type Area Ecologist Technician Device Identifier Shelf Expiration Date Model / Serial / Lot Plate, Screws Right: Thumb Procedures Procedure Name Priority Date/Time Associated Diagnosis Comments MRI CERVICAL SPINE WO CONTRAST Schedule Routine, Read Routine (OP Routine) 08/07/2024 10:49 AM CDT Paresthesia of skin MRI BRAIN WO CONTRAST Schedule Routine, Read Routine (OP Routine) 08/07/2024 10:31 AM CDT Paresthesia of skin Intractable chronic migraine without aura and without status migrainosus Transient alteration of awareness TRANSTHORACIC ECHO (TTE) COMPLETE W DOPPLER/CF WO CONTRAST Routine 07/17/2024 8:39 AM CDT Palpitations Postural dizziness with presyncope HEPATITIS C ANTIBODY Routine 11/14/2023 8:22 AM CDT Encounter for hepatitis C screening test for low risk patient from Last 3 Months or Most Recently Relevant to Health Maintenance Results * MRI Cervical Spine WO Contrast (08/07/2024 10:49 AM CDT) Anatomical Region Laterality Modality Spine N/A Magnetic Resonan ce 08/07/2024 3:27 PM CDT Narrative 08/07/2024 3:44 PM CDT EXAM DESCRIPTION: MRI CERVICAL SPINE WO CONTRAST REASON FOR STUDY: paresthesia Headaches and dizziness for awhile. Tingling and numbness down both arms at times. TECHNIQUE: Sagittal and Axial imaging includes T1, T2, STIR and gradient echo sequences. COMPARISON: No comparison. FINDINGS: ALIGNMENT: Straightening of lordosis with slight degenerative retrolisthesis of C5 on C6 and of C6 on C7. Alignment otherwise is normal. VERTEBRAE: Vertebral body height is maintained. There is no concerning marrow abnormality. Hypertrophic anterior and posterior endplate spurring most evident C5-6 C6-7. DISCS: Chronic disc space narrowing at C5-6 C6-7. See detail below. HARDWARE: None in the spine. CORD: Normal in size and signal intensity. INDIVIDUAL LEVELS: C1-C2: No significant spinal stenosis. C2-C3: Right-sided uncovertebral and facet hypertrophic spurring. There is [id number] right foraminal narrowing. Mild left foraminal narrowing. No central canal stenosis. C3-C4: Shallow central disc osteophytic complex. Uncovertebral spurring. There is moderate right foraminal narrowing. No significant central canal stenosis or left foraminal narrowing. C4-C5: Right-sided facet arthritis with uncovertebral spurring. With [id number] right foraminal narrowing. No central canal stenosis or left foraminal narrowing. C5-C6: Bilateral facet arthritis with right-sided asymmetry. Broad-based posterior endplate osteophytic spurring with right-sided asymmetry. There is severe right foraminal stenosis. Mild spinal canal stenosis without cord impingement. C6-C7: Uncovertebral spurring bilaterally with right-sided asymmetry. There is [id number] right foraminal narrowing. No significant left foraminal narrowing. Mild spinal stenosis but no cord impingement. C7-T1: No significant spinal stenosis or neural foraminal stenosis. BASE OF BRAIN: No significant finding. UPPER THORACIC: Incompletely imaged. No significant spinal stenosis or foraminal stenosis. OTHER: No other significant finding. IMPRESSION: Multilevel cervical spondylosis with facet arthritis and uncovertebral spurring. Changes are most evident on the right at C5-6 with severe right foraminal narrowing. Please correlate with radiculopathy symptoms. No high-grade spinal stenosis or cord impingement at any level. THIS IS AN ELECTRONICALLY VERIFIED FINAL REPORT 08/07/2024 3:44 PM - Electronically signed by Declan Rosenberg M.D. LC T: Report ID: [id number] Reading Location: [id number] Procedure Note Juanita Rosenberg MD - 08/07/2024 EXAM DESCRIPTION: MRI CERVICAL SPINE WO CONTRAST REASON FOR STUDY: paresthesia Headaches and dizziness for awhile. Tingling and numbness down both armsat times. TECHNIQUE: Sagittal and Axial imaging includes T1, T2, STIR and gradientecho sequences. COMPARISON: No comparison. FINDINGS: ALIGNMENT: Straightening of lordosis with slight degenerativeretrolisthesis of C5 on C6 and of C6 on C7. Alignment otherwise is normal. VERTEBRAE: Vertebral body height is maintained. There is no concerning marrow abnormality. Hypertrophic anterior and posterior endplate spurring most evident C5-6 C6-7. DISCS: Chronic disc space narrowing at C5-6 C6-7. See detail below. HARDWARE: None in the spine. CORD: Normal in size and signal intensity. INDIVIDUAL LEVELS: C1-C2: No significant spinal stenosis. C2-C3: Right-sided uncovertebral and facet hypertrophic spurring. Thereis kfwn-wz-lseqoadt right foraminal narrowing. Mild left foraminalnarrowing. No central canal stenosis. C3-C4: Shallow central disc osteophytic complex. Uncovertebralspurring. There is moderate right foraminal narrowing. No significant central canal stenosis or left foraminal narrowing. C4-C5: Right-sided facet arthritis with uncovertebral spurring. With qpas-ef-hboimodc right foraminal narrowing. No central canal stenosis orleft foraminal narrowing. C5-C6: Bilateral facet arthritis with right-sided asymmetry.Broad-based posterior endplate osteophytic spurring with right-sided asymmetry. Thereis severe right foraminal stenosis. Mild spinal canal stenosis without cord impingement. C6-C7: Uncovertebral spurring bilaterally with right-sided asymmetry.There is vekc-ny-cfqcnzzt right foraminal narrowing. No significant leftforaminal narrowing. Mild spinal stenosis but no cord impingement. C7-T1: No significant spinal stenosis or neural foraminal stenosis. BASE OF BRAIN: No significant finding. UPPER THORACIC: Incompletely imaged. No significant spinal stenosis or foraminal stenosis. OTHER: No other significant finding. IMPRESSION: Multilevel cervical spondylosis with facet arthritis and uncovertebral spurring. Changes are most evident on the right at C5-6 with severe right foraminal narrowing. Please correlate with radiculopathy symptoms. No high-grade spinal stenosis or cord impingement at anylevel. THIS IS AN ELECTRONICALLY VERIFIED FINAL REPORT 08/07/2024 3:44 PM - Electronically signed by Declan Rosenberg M.D. T: Report ID: [id number] Reading Location: [place] [address] us Sveta Carrillo NP IMG MRI PROCEDURES Final Res ult * MRI Brain WO Contrast (08/07/2024 10:31 AM CDT) Anatomical Region Laterality Modality Head and Neck N/A Magnetic Resonan ce 08/07/2024 3:20 PM CDT Narrative 08/07/2024 3:27 PM CDT EXAM DESCRIPTION: MRI BRAIN WO CONTRAST REASON FOR STUDY: Mental status change, unknown cause, Headache, increasing frequency or severity Headaches and dizziness for awhile. Tingling and numbness down both arms at times. TECHNIQUE: Multiplanar imaging includes non-contrasted T1, T2, FLAIR, and diffusion with ADC map sequences. Additional sequence(s) sensitive to blood products. Images stored on PACS. COMPARISON: Head CT comparison 09/20/2023. FINDINGS: CEREBRUM: No hemorrhage, edema, or mass effect. No abnormality on blood sensitive gradient T2 weighted sequences is identified to indicate hemosiderin or other chronic blood breakdown product. WHITE MATTER: Single punctate focus of T2 hyperintensity in right frontal subcortical white matter. Findings are nonspecific. Mild microvascular POSTERIOR FOSSA: Change in the anterior mid steven. The brainstem and cerebellum otherwise unremarkable. Brainstem and cerebellum appear unremarkable. DIFFUSION IMAGING: No recent infarction. EXTRAAXIAL SPACES: No hemorrhage. No mass. BRAIN VOLUME: Within normal limits for age. PITUITARY: Unremarkable. VASCULATURE: No flow disturbance identified. ORBITS: No masses. Globes normal. PARANASAL SINUSES AND MASTOIDS: Well-aerated with no fluid levels. No mucosa thickening. OTHER: No other significant finding. IMPRESSION: 1. No acute intracranial finding. Single punctate focus of T2 hyperintensity in right frontal subcortical white matter. Findings are nonspecific and while can be seen in asymptomatic patients of this age group, findings may also be seen secondary to chronic microvascular ischemia, chronic migraine headaches, demyelinating diseases, and as sequelae of prior traumatic and/or infectious or inflammatory processes. Please correlate with clinical factors. 2. Otherwise, unremarkable MRI of the brain. THIS IS AN ELECTRONICALLY VERIFIED FINAL REPORT 08/07/2024 3:27 PM - Electronically signed by Declan Rosenberg M.D. T: Report ID: [id number] Reading Location: [id number] Procedure Note Juanita Rosenberg MD - 08/07/2024 EXAM DESCRIPTION: MRI BRAIN WO CONTRAST REASON FOR STUDY: Mental status change, unknown cause, Headache,increasing frequency or severity Headaches and dizziness for awhile. Tingling and numbness down both armsat times. TECHNIQUE: Multiplanar imaging includes non-contrasted T1, T2, FLAIR, and diffusion with ADC map sequences. Additional sequence(s) sensitive toblood products. Images stored on PACS. COMPARISON: Head CT comparison 09/20/2023. FINDINGS: CEREBRUM: No hemorrhage, edema, or mass effect. Noabnormality on blood sensitive gradient T2 weighted sequences is identified toindicate hemosiderin or other chronic blood breakdown product. WHITE MATTER: Single punctate focus of T2 hyperintensity in rightfrontal subcortical white matter. Findings are nonspecific. Mild microvascular POSTERIOR FOSSA: Change in the anterior mid steven. The brainstem and cerebellum otherwise unremarkable. Brainstem and cerebellum appear unremarkable. DIFFUSION IMAGING: No recent infarction. EXTRAAXIAL SPACES: No hemorrhage. No mass. BRAIN VOLUME: Within normal limits for age. PITUITARY: Unremarkable. VASCULATURE: No flow disturbance identified. ORBITS: No masses. Globes normal. PARANASAL SINUSES AND MASTOIDS: Well-aerated with no fluid levels. Nomucosa thickening. OTHER: No other significant finding. IMPRESSION: 1. No acute intracranial finding. Single punctate focus of B1sccphbfkptxgel in right frontal subcortical white matter. Findings are nonspecific andwhile can be seen in asymptomatic patients of this age group, findings may alsobe seen secondary to chronic microvascular ischemia, chronic migraineheadaches, demyelinating diseases, and as sequelae of prior traumatic and/orinfectious or inflammatory processes. Please correlate with clinical factors. 2. Otherwise, unremarkable MRI of the brain. THIS IS AN ELECTRONICALLY VERIFIED FINAL REPORT 08/07/2024 3:27 PM - Electronically signed by Declan Rosenberg M.D. T: Report ID: [id number] Reading Location: [id number] Sveta Carrillo NP IMG MRI PROCEDURES Final Res ult * TRANSTHORACIC ECHO (TTE) COMPLETE W DOPPLER/CF WO CONTRAST (07/17/2024 8:39 AM CDT) EF Mod BP 65 % CONS SCIMAGE Anatomical Region Laterality Modality Ultrasound 07/17/2024 8:01 AM CDT Narrative 07/17/2024 4:40 PM CDT Transthoracic Echocardiographic Report Patient Name: BALDEMAR WEEKS D : 1975 (49y 5m) Gender: F Study Date: 07/17/2024 08:01:52 AM Ht(Inch): 71 Wt(Lb): 191.01 BSA: 2.08 Board Certified Arts Therapist: Esperanza Obando RDCS Order Provider: DOMONIQUE HERNANDEZ Heart Rate: 70 BMI: 26.64 BP: 124 / 78 Ref Provider: DOMONIQUE HERNANDEZ PROCEDURES: Echocardiographic Report: ([id number]) Transthoracic complete echo, 2D, spectral and tissue Doppler, color flow Doppler, M-mode. INDICATIONS: R00.2 Palpitations, R42 Dizziness and giddiness, and R55 Syncope and collapse. FINDINGS: Left Ventricle: Normal left ventricular cavity size. Normal Left ventricular wall thickness. Normal left ventricular systolic function. The Ejection Fraction (Mcgovern's) is measured at 65 %. Diastolic Function Left ventricular diastolic parameters are consistent with Grade I diastolic dysfunction (normal LA pressure). Right Ventricle: Normal right ventricular size. Normal right ventricular systolic function. Left Atrium: The left atrium is normal in size. Right Atrium: The right atrium is normal in size. Mitral Valve: Normal mitral valve leaflet structure. There is trace mitral valve regurgitation. Aortic Valve: Trileaflet aortic valve. Tricuspid Valve: The estimated right ventricular systolic pressure is 21 mmHg. Pulmonic Valve: Pulmonic Valve not well visualized due to poor echo windows. Pericardium: Normal pericardium without evidence of pericardial effusion. Aorta: Normal aortic root. IVC: The estimated RA pressure is 3 mmHg. CONCLUSIONS: 1. Normal 2D/Doppler echocardiographic study with normal left ventricular function and no significant valvular abnormalities. MEASUREMENTS: 2D/MM Value Range Doppler Value LVIDd 2D 4.87 cm [ 3.50 - 5.70 ] AV Peak Tristian 1.28 m/s LVIDs 2D 3.16 cm [ 3.10 - 4.60 ] AV Peak PG 6.55 mmHg IVSd 2D 0.81 cm [ 0.60 - 1.20 ] LVOT Peak Tristian 0.93 m/s LVPWd 2D 0.84 cm [ 0.60 - 1.10 ] LVOT Peak PG 3.46 mmHg LV Thickness Ratio 0.96 LVOT Diam 2.00 cm LV Mass 2D 138.80 g MICK Vmax 2.28 cm2 LV Mass Index 2D 66.73 g/m2 MV E Peak Tristian 0.80 m/s RWT 0.34 MV A Peak Tristian 0.90 m/s EDV Mod BP 86.70 ml [ 46.00 - 106.00 ] MV E/A 0.90 ratio LV EDV Index 41.68 ml/m2 MV Decel Time 180.00 msec ESV Mod BP 30.00 ml [ 14.00 - 42.00 ] Med E` Tristian 6.64 cm/sec EF Mod BP 65 % [ 54 - 74 ] Lat E` Tristian 9.14 cm/sec LA Dimension 2D 3.90 cm [ 1.90 - 4.00 ] Average E/E` 10.14 LA Length 2C 5.37 cm TV Peak Tristian 0.48 m/s LA Length 4C 5.06 cm TV Peak PG 0.92 mmHg LA Volume BP 52.20 ml RV S` 12.20 cm/sec LA Volume Index 25.10 ml/m2 [ 16.00 - 34.00 ] TR Peak Tristian 2.10 m/s AoR Diam 2D 3.10 cm [ 2.00 - 3.70 ] TR Peak PG 17.6 mmHg Ao Root Index 1.49 cm/m2 [ 1.00 - 2.00 ] RA Pressure 3.00 mmHg RVSP 20.60 mmHg PV Peak Tristian 0.80 m/s PV Peak PG 2.56 mmHg - ATTESTATION: I have reviewed and interpreted the pertinent images and measurements of this study. I attest to the conclusions in the final report that is provided above. DISCLAIMER: The study images and the final report will be retained in the patient chart by the [facility] for the legally required time period. This chart constitutes the legal record of any testing performed. Electronically Signed By: Syd Heard MD 07/17/2024 4:40:26 PM CDT Procedure Note Syd Heard MD - 07/17/2024 Transthoracic Echocardiographic Report Patient Name: BALDEMAR WEEKS D : 1975 (49y 5m) Gender: F Study Date: 07/17/2024 08:01:52 AM Ht(Inch): 71 Wt(Lb): 191.01 BSA: 2.08 Board Certified Arts Therapist: Esperanza Obando RDCS Order Provider: DOMONIQUE HERNANDEZ Heart Rate: 70 BMI: 26.64 BP: 124 / 78 Ref Provider: DOMONIQUE HERNANDEZ PROCEDURES: Echocardiographic Report: ([id number]) Transthoracic complete echo, 2D,spectral and tissue Doppler, color flow Doppler, M-mode. INDICATIONS: R00.2 Palpitations, R42 Dizziness and giddiness, and R55 Syncope andcollapse. FINDINGS: Left Ventricle: Normal left ventricular cavity size. Normal Leftventricular wall thickness. Normal left ventricular systolic function. The EjectionFraction (Mcgovern's) is measured at 65 %. Diastolic Function Left ventricular diastolicparameters are consistent with Grade I diastolic dysfunction (normal LA pressure). Right Ventricle: Normal right ventricular size. Normal right ventricularsystolic function. Left Atrium: The left atrium is normal in size. Right Atrium: The right atrium is normal in size. Mitral Valve: Normal mitral valve leaflet structure. There is trace mitralvalve regurgitation. Aortic Valve: Trileaflet aortic valve. Tricuspid Valve: The estimated right ventricular systolic pressure is 21mmHg. Pulmonic Valve: Pulmonic Valve not well visualized due to poor echowindows. Pericardium: Normal pericardium without evidence of pericardialeffusion. Aorta: Normal aortic root. IVC: The estimated RA pressure is 3 mmHg. CONCLUSIONS: 1. Normal 2D/Doppler echocardiographic study with normal left ventricularfunction and no significant valvular abnormalities. MEASUREMENTS: 2D/MM Value Range DopplerValue LVIDd 2D 4.87 cm [ 3.50 - 5.70 ] AV Peak Vel1.28 m/s LVIDs 2D 3.16 cm [ 3.10 - 4.60 ] AV Peak PG6.55 mmHg IVSd 2D 0.81 cm [ 0.60 - 1.20 ] LVOT Peak Vel0.93 m/s LVPWd 2D 0.84 cm [ 0.60 - 1.10 ] LVOT Peak PG3.46 mmHg LV Thickness Ratio 0.96 LVOT Diam2.00 cm LV Mass 2D 138.80 g MICK Vmax2.28 cm2 LV Mass Index 2D 66.73 g/m2 MV E Peak Vel0.80 m/s RWT 0.34 MV A Peak Vel0.90 m/s EDV Mod BP 86.70 ml [ 46.00 - 106.00 ] MV E/A0.90 ratio LV EDV Index 41.68 ml/m2 MV Decel Szxi089.00 msec ESV Mod BP 30.00 ml [ 14.00 - 42.00 ] Med E` Vel6.64 cm/sec EF Mod BP 65 % [ 54 - 74 ] Lat E` Vel9.14 cm/sec LA Dimension 2D 3.90 cm [ 1.90 - 4.00 ] Average E/E`10.14 LA Length 2C 5.37 cm TV Peak Vel0.48 m/s LA Length 4C 5.06 cm TV Peak PG0.92 mmHg LA Volume BP 52.20 ml RV S`12.20 cm/sec LA Volume Index 25.10 ml/m2 [ 16.00 - 34.00 ] TR Peak Vel2.10 m/s AoR Diam 2D 3.10 cm [ 2.00 - 3.70 ] TR Peak PG17.6 mmHg Ao Root Index 1.49 cm/m2 [ 1.00 - 2.00 ] RA Pressure3.00 mmHg RVSP 20.60 mmHg PV Peak Tristian 0.80 m/s PV Peak PG 2.56 mmHg - ATTESTATION: I have reviewed and interpreted the pertinent images and measurements ofthis study. I attest to the conclusions in the final report that is provided above. DISCLAIMER: The study images and the final report will be retained in the patientchart by the [facility] for the legally required time period. This chart constitutesthe legal record of any testing performed. Electronically Signed By: Syd Heard MD 07/17/2024 4:40:26 PM CDT us Domonique Hernandez NP CV ECHO PROCEDURES Final Result * Hepatitis C antibody Blood (11/14/2023 8:22 AM CDT) Hep C Ab Nonreactive Nonreactive Comment: Interpretive Data Nonreactive: Antibodies to HCV not detected. Does NOT exclude the possibility of recent exposure to HCV. Equivocal: Equivocal for HCV antibodies. Supplemental molecular testing will be automatically performed to determine infection status in accordance with current CDC screening recommendations. Reactive: Positive for HCV antibodies. This may represent current or past HCV infection. Supplemental molecular testing will be automatically performed to determine current infection status in accordance with current CDC screening recommendations. Interpretive data was last revised on 2019. Blood 11/14/2023 8:22 AM CDT 11/14/2023 3:24 PM CDT us Domonique Hernandez NP LAB MICROBIOLOGY - GENERAL ORDER ALEXANDRE Final Result [facility] [address] Department [place] [address] from Last 3 Months or Most Recently Relevant to Health Maintenance Insurance [facility] [id number] [facility] [id number] Care Teams Budget Officer Relationship Specialty Start Date End Date Domonique Hernandez NP [address] [facility] [address] [place], [place] [id number] PCP - General Family Medicine 03/05/23 Vasiliy Caba MD [address] [facility] [address] [place] [address] Referring Physician Obstetrics and Gynecology 03/05/23
--- OUTSIDE RECORDS SUMMARY | 2024-10-13 16:38 | XMS_ITS | Clinical Summary ---
Author Organization [facility] Address [address] [facility] [place] [place] [address] Care Team Providers Care Slip Presser Name Role Phone Isaiah Almonte MD Primary Care Provider [phone] Allergies Active Allergy Reactions Criticality Noted Date Comments Penicillins Other (See Comments) 05/21/2017 both parents have allergy Sulfa (Sulfonamide Antibiotics) Shortness of Breath/Wheezing High 05/21/2017 Tetracycline Shortness of Breath/Wheezing High 05/21/2017 Medications folic acid (FOLVITE) 1 mg tablet Take 1 mg by mouth daily. Active methotrexate (RHEUMATREX) 2.5 mg TabletIndication s:6 tabs po mondays Take 15 mg by mouth every 7 days. Active Active Problems Problem Noted Date Diagnosed Date Rheumatoid arthritis of [facility] without rheumatoid factor 05/02/2017 Family History Medical History Relation Name Comments Other Father Other Mother Relation Name Status Comments Father Alive Mother Alive Social History Tobacco Use Types Packs/Day Years Used Date Smoking Tobacco: Former Cigarettes 0.3 15 0 05/21/1994 - 05/21/2009 Alcohol Use Standard Drinks/Week Comments Yes 0 (1 standard drink = 0.6 oz pur e alcohol) occasionally Comments No Sex and Gender Information Value Date Recorded Sex Assigned at Not on file Legal Sex Female 8:51 AM CDT Gender Identity Not on file Sexual Orientation Not on file Last Filed Vital Signs Vital Sign Reading Time Taken Comments Blood Pressure 151/101 05/21/2017 3:01 PM CDT Pulse 83 05/21/2017 3:01 PM CDT Temperature 36.9 C (98.4 F) 05/21/2017 3:01 PM CDT Respiratory Rate 16 05/21/2017 3:01 PM CDT Oxygen Saturation 97% 05/21/2017 3:01 PM CDT Inhaled Oxygen Concentration - - Weight 86.6 kg (191 lb) 05/21/2017 3:01 PM CDT Height 180.3 cm (5' 11) 05/21/2017 3:01 PM CDT Body Mass Index 26.64 05/21/2017 3:01 PM CDT Plan of Treatment Health Maintenance Due Date Last Done Comments DTAP/TDAP/TD VACCINES (1 - Tdap) 02/05/1995 HEPATITIS B VACCINES (1 of 3 - 19+ 3-dose series) 01/25 HPV/Cotest (21-29) 02/05/1997 CERVICAL CANCER SCREENING 02/05/2006 HPV/Cotest (30-65) 02/05/2006 PAP SMEAR 02/05/2006 BREAST CANCER SCREENING 2016 COLORECTAL SCREENING 02/05/2021 Colorectal Cancer Screening 02/05/2021 FIT-DNA Q 3 years 02/05/2021 FIT/FOBT Q 1 year 02/05/2021 Flex Sig/CT Colonography Q 5 years 02/05/2021 INFLUENZA VACCINE (#1) 2024 Insurance [email or web address] [facility] Care Teams Slip Presser Relationship Specialty Start Date End Date Isaiah Almonte MD [address] [id number] PCP - General Family Practice 05/21/17
--- OUTSIDE RECORDS SUMMARY | 2024-10-13 16:38 | XMS_ITS | Clinical Summary ---
Author Organization [facility] Address [address] [place] [address] Phone Care Team Providers Care Fern Gatherer Name Role Phone Isaiah Almonte MD Primary Care Provider Allergies Active Allergy Reactions Criticality Noted Date Comments Morphine Unknown 02/21/2011 n/v Penicillins Unknown Sulfa Antibiotics Rash,Shortness of Breath High 09/2009 Tetracycline Rash,Shortness of Breath 0 Tramadol Other (see Comments) 02/12/2011 Medications RESTASIS 0.05 % Emulsion 02/07/2017 Active folic acid (FOLVITE) 1 MG Tablet 01/23/2017 Active hydroxychloroqui ne (PLAQUENIL) 200 MG Tablet 01/16/2017 Activ e indomethacin (INDOCIN SR) 75 MG Capsule CR Take by mouth. 02/28/2011 Active Levonorgest-Eth Estrad -Day 0.15-0.03 &0.01 MG Tablet Take by mouth. Active methylPREDNISolo ne (MEDROL DOSPACK) 4 MG Tablet Therapy Pack 02/12/2017 Active naproxen (NAPROSYN) 500 MG Tablet Take by mouth. 03/02/2011 Active omeprazole (PRILOSEC) 40 MG CAPSULE DELAYED RELEASE Take by mouth. Active pantoprazole (PROTONIX) 40 MG Tablet Delayed Response TK 1 T PO QD 2 12/04/2016 Active Social History Tobacco Use Types Packs/Day Years Used Date Smoking Tobacco: Former Cigarettes 0.5 10 Smokeless Tobacco: Never Comments No Sex and Gender Information Value Date Recorded Sex Assigned at Not on file Legal Sex Female 1:37 PM PAN WASHER HAND Gender Identity Not on file Sexual Orientation Not on file Last Filed Vital Signs Vital Sign Reading Time Taken Comments Blood Pressure 148/102 03/04/2017 3:32 PM PAN WASHER HAND Pulse 76 03/04/2017 3:32 PM PAN WASHER HAND Temperature - - Respiratory Rate - - Oxygen Saturation 98% 03/04/2017 3:32 PM PAN WASHER HAND Inhaled Oxygen Concentration - - Weight 89.4 kg (197 lb) 03/04/2017 3:32 PM PAN WASHER HAND Height 180.3 cm (5' 11) 03/04/2017 3:32 PM PAN WASHER HAND Body Mass Index 27.48 03/04/2017 3:32 PM PAN WASHER HAND Plan of Treatment Health Maintenance Due Date Last Done Comments Hepatitis C Virus (HCV) Screening 1975 TdaP Immunization 1975 SARS-COV-2 Immunization (#1) 02/05/1981 Hepatitis B Immunization (1 of 3 - 19+ 3-dose series) 02/05/1995 Pap Smear 02/05/1997 Cervical Cancer Screening (CCS) 02/05/2006 HPV/Cotest 02/05/2006 Cologuard 02/05/2021 Colonoscopy 02/05/2021 Colorectal Cancer Screening 02/05/2021 Immunochemical Fecal Occult Blood 02/05/2021 Influenza Immunization (#1) 2024 Respiratory Syncytial Virus (RSV) Immunization (Adult) (1 - 1-dose 75+ series) 02/05/2051 Human Papillomavirus (HPV) Immunization Aged Out No longer eligible b ased on patient's age to complete this topic Meningococcal Immunization (ACWY) Aged Out No longer eligible based on patient's age to complete this topic Pneumococcal Immunization Combined Aged Out No longer eligible based on patient's age to complete this topic Rotavirus Immunization Aged Out No lo nger eligible based on patient's age to complete this topic [place] [address] [place] [address] OAP Care Teams Fern Gatherer Relationship Specialty Start Date End Date Isaiah Almonte MD [address] [place] [address] PCP - General Family Medicine 03/04/17
--- OUTSIDE RECORDS SUMMARY | 2024-10-13 16:38 | XMS_ITS | Clinical Summary ---
Author Organization [facility] Address [address] [place] [id number] Phone Care Team Providers Care School Bus Aide Name Role Phone Isaiah Almonte MD Primary Care Provider [phone] Allergies Active Allergy Reactions Criticality Noted Date Comments Elemental Sulfur 08/09/2019 Morphine Unknown 02/21/2011 n/v n/v Penicillins Anaphylaxis,Other (s ee comments),Unknown High 06/02/2009 both parents have allergy Sulfa Antibiotics Shortness of breath,Rash High 06/02/2009 Rash Tetracycline Rash,Shortness of breath High 06/02/2009 rash Tramadol Headache,Other (see comments) 02/12/2011 Medications omeprazole (PriLOSEC) [address] capsule Take by mouth Active Active Problems Problem Noted Date Diagnosed Date Proteinuria 08/11/2019 Rheumatoid arthritis of multiple joints 05/03/19 18 Overview (08/09/2019): Last Assessment & Plan: Mod cdai. Has not been here since 07/2017. Will recheck serologies, xrays and rt hand US. In past she used to be on mtx and humira. In pat she did not think humira helped with her joint pain. Her tinnitus did not resolve off plaquenil and neg workup by ent. seen with dr campo. Lily 12/17/2016 Family History Medical History Relation Comments Kidney disease Neg Hx Social History Tobacco Use Types Packs/Day Years Used Date Smoking Tobacco: Former Smokeless Tobacco: Never Alcohol Use Standard Drinks/Week Comments Yes 2 (1 standard drink = 0.6 oz pur e alcohol) Comments Unknown Sex and Gender Information Value Date Recorded Sex Assigned at Not on file Legal Sex Female 8:16 AM MDT Gender Identity Not on file Sexual Orientation Not on file Last Filed Vital Signs Vital Sign Reading Time Taken Comments Blood Pressure 134/80 08/11/2019 4:00 PM CDT Pulse 84 08/11/2019 4:00 PM CDT Temperature 37.1 C (98.8 F) 08/11/2019 4:00 PM CDT Respiratory Rate - - Oxygen Saturation - - Inhaled Oxygen Concentration - - Weight 89.4 kg (197 lb) 08/11/2019 4:00 PM CDT Height 180.3 cm (5' 11) 08/11/2019 4:00 PM CDT Body Mass Index 27.48 08/11/2019 4:00 PM CDT Plan of Treatment Health Maintenance Due Date Last Done Comments Influenza Vaccine (#1) 2024 Insurance [employer] Care Teams School Bus Aide Relationship Specialty Start Date End Date Isaiah Almonte MD [address] [facility] [address] [facility] [address] [place] [address] PCP - General Internal Medicine 08/05/19
[2024-10-13 16:51] VITALS: BP 158/96; PULSE 112; RESP 16; TEMP 36.6; O2SAT 96
--- NOTE | 2024-10-13 18:28 | ED_ITS ---
HPI - Extremity Injury (Lower) General Chief Complaint: Extremity Injury, Lower <Audra Alston PA-C - Last Filed: 10/14/24 10:22> Stated Complaint: right calf popped <BATOOL Multani Last Filed: 10/14/24 10:22> Time Seen by Provider: 10/13/24 18:28 <Audra Alston PA-C - Last Filed: 10/14/24 10:22> Focused HPI: This is a 49 year old female that presents to the ER for right leg injury this afternoon. Reports she picked up a 30 pack of beer. Reports she was on her tippy toes with the case. Reports she felt a pop in her right calf. GENERAL: Well-appearing, well-nourished, and in no acute distress. HEAD: Normocephalic, atraumatic. CHEST: Clear to auscultation. ?No respiratory distress. HEART: Regular rate and rhythm.? NEURO: ?Alert and oriented x3. Patient screened in triage and initial orders placed.? ?Additional care and disposition to be based upon?diagnostic testing and treatment. <Audra Alston PA-C - Last Filed: 10/14/24 10:22> Focused HPI: This is a 49 year old female that presents to the ER for right leg injury this afternoon. Reports she picked up a 30 pack of beer. Reports she was on her tippy toes with the case. Reports she felt a pop in her right calf. GENERAL: Well-appearing, well-nourished, and in no acute distress. HEAD: Normocephalic, atraumatic. CHEST: Clear to auscultation. ?No respiratory distress. HEART: Regular rate and rhythm.? NEURO: ?Alert and oriented x3. Patient screened in triage and initial orders placed.? ?Additional care and disposition to be based upon?diagnostic testing and treatment. <Jessica Bear PA-C - Last Filed: 10/13/24 21:38> Source: patient <BATOOL Mcmillan Last Filed: 10/13/24 21:38> Mode of arrival: ambulatory <BATOOL Mcmillan Last Filed: 10/13/24 21:38> Limitations: no limitations <Jessica Bear PA-C - Last Filed: 10/13/24 21:38> History of Present Illness HPI Narrative: Agree with above HPI. Unable to ambulate <Jessica Bear PA-C - Last Filed: 10/13/24 21:38> Related Data Home Medications: Home Medications ?Medication ?Instructions ?Recorded ?Confirmed ?Last Taken ?Type losartan 100 mg tablet 100 mg PO DAILY 02/23/23 Unknown History hydrochlorothiazide 25 mg tablet 25 mg PO DAILY Unknown History levonorgestrel (Mirena) 1 device intrauterine ONCE 0 04/16/24 Unknown History <Audra Alston PA-C - Last Filed: 10/14/24 10:22> Allergies/Adverse Reactions: Allergies Allergy/AdvReac Type Severity Reaction Status Date / Time Penicillins Allergy Unknown Rash Verified 10/13/24 16:53 Sulfa (Sulfonamide Allergy Unknown Anaphylaxis Verified 10/13/24 16:53 Antibiotics) tetracycline Allergy Unknown Rash Verified 10/13/24 16:53 <Audra Alston PA-C - Last Filed: 10/14/24 10:22> Review of Systems Review of Systems: All systems reviewed & are unremarkable except as noted in HPI. <Jessica Bear PA-C - Last Filed: 10/13/24 21:38> All systems reviewed & are unremarkable except as noted in HPI and below <Jessica Bear PA-C - Last Filed: 10/13/24 21:38> FOR[facility]LY [facility] Past Medical History Medical History: Medical History Cholecystectomy planned 11/19/2023 Chronic GERD Rheumatoid arthritis HLD (hyperlipidemia) HTN (hypertension) <Audra Alston PA-C - Last Filed: 10/14/24 10:22> Surgical History Surgical History: Surgical History H/O hand surgery rt H/O right knee surgery H/O left knee surgery <Audra Alston PA-C - Last Filed: 10/14/24 10:22> Family History Family History: Family History Mother Family history of osteoarthritis Hypertension Father Hypertension Grandparent Hypertension Other Family history of arthritis <Audra Alston PA-C - Last Filed: 10/14/24 10:22> Social History Social History: Social History Smoking packs per day: 0.5 Smoking cigarettes per day: 10.0 Years smoked: 10 Smoking pack-years: 5.00 Smoking status: Former smoker Tobacco type: cigarettes Second hand tobacco smoke exposure: No Smoking end date: 02/26/08 Alcohol intake: current Drinks per week: 2 Substance use: never Substance use type: does not use Living arrangements: with family Occupation/Education: occupation Gender identity (if verbalized by the patient): Female Sexual Orientation (if Verbalized by the Patient): Straight or Heterosexual Spiritual care concerns: No <Audra Alston PA-C - Last Filed: 10/14/24 10:22> Exam Narrative: GENERAL: Well appearing, well-nourished, non-toxic, in no acute distress. HEAD: Normocephalic, atraumatic. RESPIRATORY: Airway patent, respirations nonlabored. CARDIOVASCULAR: Regular rate and rhythm. Pedal pulses intact MUSCULOSKELETAL: No gross deformities. Limited ROM of R ankle dorsiflexion d/t pain. Fullness/swelling to L posterior calf/posterior heel/Achilles region. Focal TTP and tenderness in mid calf. Very very slight plantar flexion with gibson testing. Sensation intact throughout extremity. SKIN: Warm, dry, normal color. NEURO: A&O X3. Speech clear. No ataxic movements. PSYCHIATRIC: Appropriate mood and affect. Normal interaction. <Jessica Bear PA-C - Last Filed: 10/13/24 21:38> Course Consultations Consultation #1: Spoke with Dr. Mason about patient and workup. She should call in the morning to make an appointment <Audra Alston PA-C - Last Filed: 10/14/24 10:22> Date: 10/13/24 <BATOOL Multani Last Filed: 10/14/24 10:22> Vital Signs Vital signs: Vital Signs Temperature 98 F 10/13/24 16:51 Pulse Rate 112 H 10/13/24 16:51 Respiratory Rate 16 10/13/24 16:51 Blood Pressure 158/96 H 10/13/24 16:51 Pulse Oximetry 96 10/13/24 16:51 Oxygen Delivery Room Air 10/13/24 16:51 Temperature 97.9 F 10/13/24 20:30 Pulse Rate 69 10/13/24 20:30 Respiratory Rate 18 10/13/24 20:30 Blood Pressure 132/73 10/13/24 20:30 Pulse Oximetry 97 10/13/24 20:30 Oxygen Delivery Room Air 10/13/24 16:51 <BATOOL Multani Last Filed: 10/14/24 10:22> Vital Signs Temperature 98 F 10/13/24 16:51 Pulse Rate 112 H 10/13/24 16:51 Respiratory Rate 16 10/13/24 16:51 Blood Pressure 158/96 H 10/13/24 16:51 Pulse Oximetry 96 10/13/24 16:51 Oxygen Delivery Room Air 10/13/24 16:51 Temperature 97.9 F 10/13/24 20:30 Pulse Rate 69 10/13/24 20:30 Respiratory Rate 18 10/13/24 20:30 Blood Pressure 132/73 10/13/24 20:30 Pulse Oximetry 97 10/13/24 20:30 Oxygen Delivery Room Air 10/13/24 16:51 <BATOOL Mcmillan Last Filed: 10/13/24 21:38> MDM - Extremity Injury (Lower) MDM Narrative Medical decision making narrative: Exam concerning for partial to complete tear of right Achilles tendon. Otherwise neurovascularly intact. X-ray of right ankle negative. Patient given pain control in the ED. Placed in short leg posterior splint. Previous triage provider did discuss case with orthopedics for close follow-up. Patient is in agreement with plan. Will be sent home with pain medication for home as well as crutches. Patient in agreement plan. Given return precautions. Discharged in stable condition. <BATOOL Mcmillan Last Filed: 10/13/24 21:38> Medical Records Attestation: I reviewed the patient's medical records. <Jessica Bear PA-C - Last Filed: 10/13/24 21:38> Imaging Data Attestation: I personally reviewed and interpreted this imaging study as follows: <Jessica Bear PA-C - Last Filed: 10/13/24 21:38> Radiologist's impression: ITS Impressions Ankle X-Ray 10/13/24 18:43 IMPRESSION: 1: NO ACUTE BONE OR JOINT ABNORMALITY IDENTIFIED. <BATOOL Mcmillan Last Filed: 10/13/24 21:38> Critical Care Time Critical Care Time Critical Care Time: No <Audra Alston PA-C - Last Filed: 10/14/24 10:22> Discharge Plan Discharge Clinical Impression: Partial Achilles tendon tear Qualifiers: Encounter type: initial encounter Laterality: right Qualified Code(s): S86.011A - Strain of right Achilles tendon, initial encounter <BATOOL Multani Last Filed: 10/14/24 10:22> Patient Disposition: Home <BATOOL Multani Last Filed: 10/14/24 10:22> Condition: Stable <BATOOL Multani Last Filed: 10/14/24 10:22> Instructions: Achilles Tendon Rupture (ED) <Audra Alston PA-C - Last Filed: 10/14/24 10:22> Additional Instructions: Return to the ER if you experience fever, redness and swelling of your extremity, numbness or any other symptoms that are concerning to you Wear splint. No weight on the affected leg. Ice and elevate extremity. Pain medication as needed and directed. Follow up with orthopedics for further care. Call in the morning to make an appointment <BATOOL Multani Last Filed: 10/14/24 10:22> Patient Language: Kyrgyz <BATOOL Multani Last Filed: 10/14/24 10:22> Prescriptions: New hydrocodone-acetaminophen 5-325 mg tablet 1 tablet PO Q6H PRN (Reason: pain) Qty: 14 0RF No Action losartan 100 mg tablet 100 mg PO DAILY hydrochlorothiazide 25 mg tablet 25 mg PO DAILY Mirena 21 mcg/24hr (up to 8 yrs) 52 mg intrauterine device 1 device intrauterine ONCE Rx Instructions: as a single dose rosuvastatin 10 mg tablet See Rx Instructions .ROUTE .COMPLEX Qty: 90 1RF Dose Instruction: TAKE 1 TABLET BY MOUTH EVERY DAY Rx Instructions: TAKE 1 TABLET BY MOUTH EVERY DAY <Audra Alston PA-C - Last Filed: 10/14/24 10:22> Follow-up/Referrals: Renteria,Rebecca Doe APRN [Primary Care Provider, Unknown] Dane Mason MD [Physician, Orthopedics] <Audra Alston PA-C - Last Filed: 10/14/24 10:22>
[2024-10-13] MEDS: ACETAMINOPHEN 325 MG TABLET 650 MG PO (19:50)
[2024-10-13] MEDS: KETOROLAC (*BKC) 60 MG/2 ML VIAL IM (19:51)
--- OUTSIDE RECORDS SUMMARY | 2024-10-13 20:28 | XMS_ITS | Clinical Summary ---
Author Organization [facility] Address [address] [place] [address] Care Team Providers Care Box Nailer Name Role Phone Isaiah Almonte MD Primary Care Provider [phone] Allergies Active Allergy Reactions Criticality Noted Date [...] Noted Date Diagnosed Date Rheumatoid arthritis of [facility] without rheumatoid factor 05/02/2017 Family [...] years 02/05/2021 INFLUENZA VACCINE (#1) 2024 Insurance [employer] [facility] Care Teams Box Nailer Relationship Specialty Start Date End Date Isaiah Almonte MD [address] [id number] PCP - General Family Practice 05/21/17
--- OUTSIDE RECORDS SUMMARY | 2024-10-13 20:28 | XMS_ITS | Clinical Summary ---
Author Organization [facility] Address [address] [place] [address] Phone Care Team Providers Care Division Sales Manager Name Role Phone Isaiah Almonte MD Primary [...] on file Legal Sex Female 1:37 PM BIOMEDICAL EQUIPMENT SUPPORT SPECIALIST Gender Identity Not on file Sexual Orientation Not on file Last Filed Vital Signs Vital Sign Reading Time Taken Comments Blood Pressure 148/102 03/04/2017 3:32 PM BIOMEDICAL EQUIPMENT SUPPORT SPECIALIST Pulse 76 03/04/2017 3:32 PM BIOMEDICAL EQUIPMENT SUPPORT SPECIALIST Temperature - - Respiratory Rate - - Oxygen Saturation 98% 03/04/2017 3:32 PM BIOMEDICAL EQUIPMENT SUPPORT SPECIALIST Inhaled Oxygen Concentration - - Weight 89.4 kg (197 lb) 03/04/2017 3:32 PM BIOMEDICAL EQUIPMENT SUPPORT SPECIALIST Height 180.3 cm (5' 11) 03/04/2017 3:32 PM BIOMEDICAL EQUIPMENT SUPPORT SPECIALIST Body Mass Index 27.48 03/04/2017 3:32 PM BIOMEDICAL EQUIPMENT SUPPORT SPECIALIST Plan of Treatment Health Maintenance Due Date [...] patient's age to complete this topic [place] [address] [place] [address] OAP Care Teams Division Sales Manager Relationship Specialty Start Date End Date Isaiah Almonte MD [address] [place] [address] PCP - General Family Medicine 03/04/17
--- OUTSIDE RECORDS SUMMARY | 2024-10-13 20:28 | XMS_ITS | Clinical Summary ---
Author Organization [facility] Address [address] [place] [address] Care Team Providers Care Extrusion Supervisor Name Role Phone Isaiah Almonte MD Primary Care Provider [phone] Source Comments [facility],non-owned Affiliates and Associated Physician Practices is amultiple site organization consisting of ambulatory clinics and hospital sitesin [place], [place], [place] and [place]. This disclosure is being madepursuant to the Care Everywhere program and may not contain all information available regarding this patient. Last updated 17.[facility] Allergies Active Allergy Reactions Criticality Noted Date [...] on file Legal Sex Female 4:21 AM TOE FORMER Gender Identity Not on file Sexual Orientation Not on file Last Filed Vital Signs Vital Sign Reading Time Taken Comments Blood Pressure 113/77 02/21/2011 10:45 AM TOE FORMER Pulse 79 02/21/2011 10:45 AM TOE FORMER Temperature 36.8 C (98.3 F) 02/21/2011 10:45 AM TOE FORMER Respiratory Rate 18 02/21/2011 10:4 5 AM TOE FORMER Oxygen Saturation 98% 02/21/2011 10: 45 AM TOE FORMER Inhaled Oxygen Concentration - - Weight 84.7 kg (186 lb 11.7 oz) 02/21/2011 5:46 AM TOE FORMER Height 180.3 cm (5' 11) 02/21/2011 5:46 AM TOE FORMER Body Mass Index 26.04 02/21/2011 5:46 AM TOE FORMER Plan of Treatment Health Maintenance Due Date [...] this topic Insurance [employer] [place] [address] [employer] Care Teams Extrusion Supervisor Relationship Specialty Start Date End Date Isaiah Almonte MD [address] [place] [address] PCP - General Family Medicine 12/19/16
--- OUTSIDE RECORDS SUMMARY | 2024-10-13 20:28 | XMS_ITS | Clinical Summary ---
Author Organization [facility] Address [address] [place] [address] Care Team Providers Care Aircraft General Repair Mechanic Name Role Phone Domonique Hernandez NP Primary Care Provider [phone] Vasiliy Caba MD Unavailable [phone] Allergies Active Allergy Reactions Criticality Noted Date [...] 03/27/2023 Assessment & Plan (03/27/2023 4:21 PM FRUIT PITTER): EKG fine in office, still may be [...] mg. Assessment & Plan (03/05/2023 2:54 PM FRUIT PITTER): BP stable in office, continues Losartan and Amlodipine. Updated labs ordered, 6 months ago renal function looked good. Anxiety 03/05/2023 Assessment & Plan (05/08/2023 8:42 AM CDT): Not feeling anxious, holding on Cymbalta. Assessment & Plan (03/27/2023 4:24 PM FRUIT PITTER): Start the Duloxetine 30 mg daily, possibly contributing to symptoms. Assessment & Plan (03/05/2023 2:55 PM FRUIT PITTER): Not at goal, feels constantly on edge [...] nsaid's. Assessment & Plan (02/22/2020 8:30 AM FRUIT PITTER): Seeing dr villegas who advised pt to take NO nsaid's. Assessment & Plan (01/15/2020 7:57 AM FRUIT PITTER): Seeing dr villegas who advised pt to [...] 07/27/2019 Assessment & Plan (04/27/2024 1:56 PM FRUIT PITTER): Will trial daily Quilipta and Ubrelvy prn. [...] return. Assessment & Plan (03/27/2023 4:23 PM FRUIT PITTER): Has been evaluated in the past (2019) [...] 07/27/2019 Assessment & Plan (03/27/2023 4:24 PM FRUIT PITTER): Given the pounding of the neck and [...] ortho. Assessment & Plan (02/22/2020 8:29 AM FRUIT PITTER): Has a disc bulge c5-c6with marked narrowing, seen spine ortho. Assessment & Plan (01/15/2020 7:57 AM FRUIT PITTER): Has a disc bulge c5-c6with marked narrowing, [...] Anisocoria 05/04/2019 Lymphocytosis 07/31/2017 [facility] without rheumatoid factor 05/02/2017 Assessment & Plan (03/05/2023 2:54 PM FRUIT PITTER): Used to see Rheumatology and was on [...] 10/2019. Assessment & Plan (02/22/2020 3:09 PM FRUIT PITTER): High cdai. Failing humira, stop it and change to orencia sq. Discussed risks and se of orencia sq. Continue arava 10mg po every day. In past her hand and foot xrays showed polyarticular arthritis, no erosions. Check labs today. Labs stable 01/07/2020. Had covid 19 infection 10/2019. Assessment & Plan (01/15/2020 7:59 AM FRUIT PITTER): mod cdai but improved since she started [...] increased risk of early OA with hypermobility. intermediate accountant use of drug 12/17/2016 Assessment & Plan [...] 05/2020. Assessment & Plan (02/22/2020 8:29 AM FRUIT PITTER): PCQ caused tinnitus Mother has CTD and possible RA Cxr neg 07/2019 avise panel neg 2016 Hep b and c neg 07/2019 Avise neg 07/2019 Quant gold neg 07/2019 Mtx caused nausea Assessment & Plan (01/15/2020 7:57 AM FRUIT PITTER): PCQ caused tinnitus Mother has CTD and [...] 02/2016 Assessment & Plan (02/20/2017 2:33 PM FRUIT PITTER): Will continue to monitor the patient with routine labs. Arthralgia 12/17/2016 Overview (02/20/2017): Neg rf, ccp, derek, lucia test Neg avise panel 12/11 U/s lt hand 01/04/17 mild to mod synovitis. Assessment & Plan (02/20/2017 2:33 PM FRUIT PITTER): Patient disease activity is low-moderate, better since [...] Description 10/13/2024 3:45 PM CDT Office Visit [facility] at [address] [address] Kathia Davila NP Injury of calf (Primary Dx); Unable to bear weight on right lower extremity; Elevated blood pressure reading in office with diagnosis of hypertension 08/07/2024 9:49 AM CDT - 08/07/2024 11:59 PM CDT Hospital Encounter [address] [address] Paresthesia of skin; Intractable chronic migraine without aura and without status migrainosus; Transient alteration of awareness Discharge Disposition: Discharge to home or self care 08/07/2024 9:30 AM CDT - 08/07/2024 11:59 PM CDT Hospital Encounter [address] [address] Paresthesia of skin Discharge Disposition: Discharge to home or self care 08/07/2024 8:22 AM CDT - 08/07/2024 11:59 PM CDT Hospital Encounter [facility] Cardiac Testing [address] [place] [address] Transient alteration of awareness Discharge Disposition: Discharge to home or self care 07/21/2024 Results Follow-Up [facility] Primary Care at [address] [address] Domonique Hernandez NP Transthoracic Echo (TTE) Complete W Doppler/CF 07/17/2024 7:53 AM CDT - 07/17/2024 11:59 PM CDT Hospital Encounter [facility] Cardiac Testing [facility] [place] [address] Palpitations; Postural dizziness with presyncope Discharge Disposition: [...] on file Legal Sex Female 10:43 PM FRUIT PITTER Gender Identity Not on file Sexual Orientation Not on file 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 There is pisl-kh-uqybovqu right foraminal narrowing. Mild left foraminal narrowing. No central canal stenosis. C3-C4: Shallow central disc osteophytic complex. Uncovertebral spurring. There is moderate right foraminal narrowing. No significant central canal stenosis or left foraminal narrowing. C4-C5: Right-sided facet arthritis with uncovertebral spurring. With vjwc-tc-mokcilmm right foraminal narrowing. No central canal stenosis or left foraminal narrowing. C5-C6: Bilateral facet arthritis with right-sided asymmetry. Broad-based posterior endplate osteophytic spurring with right-sided asymmetry. There is severe right foraminal stenosis. Mild spinal canal stenosis without cord impingement. C6-C7: Uncovertebral spurring bilaterally with right-sided asymmetry. There is xwmu-ky-kneoxawv right foraminal narrowing. No significant left foraminal [...] Declan Rosenberg M.D. LC T: Report ID: [id number] Reading Location: [id number] Procedure Note Juanita Rosenberg MD - 08/07/2024 [...] Right-sided uncovertebral and facet hypertrophic spurring. Thereis omhr-pf-zavpuojw right foraminal narrowing. Mild left foraminalnarrowing. No central canal stenosis. C3-C4: Shallow central disc osteophytic complex. Uncovertebralspurring. There is moderate right foraminal narrowing. No significant central canal stenosis or left foraminal narrowing. C4-C5: Right-sided facet arthritis with uncovertebral spurring. With qgzy-sb-yqtrdhzu right foraminal narrowing. No central canal stenosis orleft foraminal narrowing. C5-C6: Bilateral facet arthritis with right-sided asymmetry.Broad-based posterior endplate osteophytic spurring with right-sided asymmetry. Thereis severe right foraminal stenosis. Mild spinal canal stenosis without cord impingement. C6-C7: Uncovertebral spurring bilaterally with right-sided asymmetry.There is vyig-lr-kihlalcd right foraminal narrowing. No significant leftforaminal narrowing. [...] by Declan Rosenberg M.D. T: Report ID: [id number] Reading Location: [place] [address] [place] Sveta Carrillo NP IMG MRI PROCEDURES [...] by Declan Rosenberg M.D. T: Report ID: [id number] Reading Location: [id number] Procedure Note Juanita Rosenberg MD - 08/07/2024 [...] acute intracranial finding. Single punctate focus of [id number] in right frontal subcortical white matter. Findings [...] by Declan Rosenberg M.D. T: Report ID: [id number] Reading Location: [id number] Sveta Carrillo NP IMG MRI PROCEDURES Final [...] AM Ht(Inch): 71 Wt(Lb): 191.01 BSA: 2.08 Transfer And Pumphouse Operator: Esperanza Obando RDCS Order Provider: DOMONIQUE HERNANDEZ Heart Rate: 70 BMI: 26.64 BP: 124 / 78 Ref Provider: DOMONIQUE HERNANDEZ PROCEDURES: Echocardiographic Report: ([id number]) Transthoracic complete echo, 2D, spectral and tissue [...] AM Ht(Inch): 71 Wt(Lb): 191.01 BSA: 2.08 Transfer And Pumphouse Operator: Esperanza Obando RDCS Order Provider: DOMONIQUE HERNANDEZ Heart Rate: 70 BMI: 26.64 BP: 124 / 78 Ref Provider: DOMONIQUE HERNANDEZ PROCEDURES: Echocardiographic Report: ([id number]) Transthoracic complete echo, 2D,spectral and tissue Doppler, [...] LV EDV Index 41.68 ml/m2 MV Decel Kvbp241.00 msec ESV Mod BP 30.00 ml [ [...] GENERAL ORDER ALEXANDRE Final Result [facility] [address] [address] [place] [address] from Last 3 Months or Most Recently Relevant to Health Maintenance Insurance [facility] [id number] [facility] [id number] Care Teams Aircraft General Repair Mechanic Relationship Specialty Start Date End Date Domonique Hernandez NP [address] [facility] [address] [place], [place] [id number] PCP - General Family Medicine 03/05/23 Vasiliy Caba MD [address] [facility] [address] [place] [address] Referring Physician Obstetrics and Gynecology 03/05/23
[2024-10-13 20:30] VITALS: BP 132/73; PULSE 69; RESP 18; TEMP 36.6; O2SAT 97
--- NOTE | 2024-11-24 11:06 | PC.NURSE ---
LATE ENTRY This note is being entered to document information to the patient's record. The following information was omitted on [10/14/24], by [Giulia Mckinney RN]. R lower leg, short posterior splint applied.
== END 2024-10-13 20:31 | disposition home or self-care (01) ==
LOC: ANHED 20:25
PROVIDERS: Emergency Provider Physician Assistant; PCP Nurse Practitioner Family
DX: S86.011A Strain of right Achilles tendon, initial encounter (principal); X50.0XXA Overexertion from strenuous movement or load, initial encounter; K21.9 Gastro-esophageal reflux disease without esophagitis; M06.9 Rheumatoid arthritis, unspecified; E78.5 Hyperlipidemia, unspecified; I10 Essential (primary) hypertension
CPT/HCPCS: 29515; 73610; 96372; 99284; A9270; J1885